=== PATIENT | female | born 1945 | race Caucasian/White ===

== ENCOUNTER 2019-05-14 08:01 | Emergency (ER) | payer MEDICARE, OTHER ==
[2019-05-14 08:14] VITALS: BP 121/75; PULSE 62; RESP 19; TEMP 98.2
[2019-05-14] MEDS ORDERED: MORPHINE SULFATE 4 MG/ML SYRINGE IVP STA (08:45)
[2019-05-14 08:57] LABS: Basophils % (A) 1 %; Eosinophils # (A) 0.1 k/uL (0-0.7); Eosinophils % (A) 3 %; HCT 35.7 % (34.0-46.0); HGB 11.9 gm/dL (11.4-16.0); Lymphocytes % (A) 35 %; MCH 29.1 pg (25.0-35.0); MCHC 33.4 g/dL (31.0-37.0); MCV 87.2 fL (80.0-100.0); Mean Platelet Volume 8.1; Monocytes # (A) 0.4 k/uL (0-1.0); Monocytes % (A) 6 %; Neutrophils % (A) 53 %; Platelet Count 157 k/uL (150-450); RBC 4.09 m/uL (3.80-5.40); RDW 13.9 % (11.5-15.5); WBC 5.5 k/uL (3.8-10.6)
[2019-05-14 09:02] LABS: Appearance,Urine Clear (Clear); Bacteria,Urine Rare /hpf; Bilirubin,Urine Negative (Negative); Blood,Urine Negative (Negative); Color,Urine Yellow; Glucose,Urine (UA) Negative (Negative); Ketones,Urine Negative (Negative); Leukocyte Esterase,Urine Small (Negative); Mucus,Urine Rare /hpf; Nitrite,Urine Negative (Negative); PH, Urine 5.5 (5.0-8.0); Protein,Urine Negative (Negative); RBC,Urine <1 /hpf (0-5); Squamous Epithelial Cell,Urine 1 /hpf (0-4); Urobilinogen,Urine <2.0 mg/dL (<2.0); WBC,Urine 2 /hpf (0-5)
[2019-05-14 09:06] LABS: Albumin 4.1 g/dL (3.5-5.0); Calcium 9.5 mg/dL (8.4-10.2); Potassium 4.1 mmol/L (3.5-5.1); Total Bilirubin 0.4 mg/dL (0.2-1.3); Total Protein 7.4 g/dL (6.3-8.2)
--- NOTE | 2019-05-14 09:30 | ED ---
Abdominal Pain HPI - General Chief Complaint: Abdominal Pain Stated Complaint: Left sided flank pain Time Seen by Provider: 05/14/19 08:20 Source: patient Mode of arrival: wheelchair Limitations: no limitations - History of Present Illness Initial Comments: 73-year-old female presenting for left flank pain. Patient states that she has had left flank pain for the past week. She states she saw her primary care provider who diagnosed her with musculoskeletal pain advised her to apply heat and she states that tramadol seems to help the pain. Patient states the pain is persistent and seems to be increasing for the past 2 days she states it does seem to somewhat fluctuating in intensity and increases with movement. Patient states there is a approximately a hand-sized area near her left CVA area that is tender to touch. Patient states the area almost swollen. Patient denies any nausea or vomiting. She states she had urinalysis performed at her outpatient provider office which revealed no findings consistent with kidney stones. She denies any history. Patient states she feels as though she may have a kidney stone and the pain is persistent. Patient denies any chest pain shortness of breath known history of abdominal aneurysm leg swelling, diarrhea, vomiting, or any other complaints. On arrival patient appears well there is no signs of distress. BP within acceptable limits. - Related Data Previous Rx's Medication Instructions Recorded Cyclobenzaprine [Flexeril] 10 mg PO TID PRN 5 Days #15 tab 05/14/19 Allergies Allergy/AdvReac Type Severity Reaction Status Date / Time Penicillins Allergy Rash/Hives Verified 05/14/19 08:14 Sulfa (Sulfonamide Allergy Unknown Verified 05/14/19 08:14 Antibiotics) Childhood Review of Systems ROS Statement: Those systems with pertinent positive or pertinent negative responses have been documented in the HPI. ROS Other: All systems not noted in ROS Statement are negative. Past Medical History Past Medical History: GERD/Reflux, Hyperlipidemia, Hypertension, Rheumatoid Arthritis (RA), Thyroid Disorder History of Any Multi-Drug Resistant Organisms: None Reported Past Surgical History: Hysterectomy Additional Past Surgical History / Comment(s): gastroplasty, lap ana, Past Psychological History: No Psychological Hx Reported Smoking Status: Never smoker Past Alcohol Use History: Occasional Past Drug Use History: None Reported General Exam - General Exam Comments Initial Comments: General: The patient is awake and alert, in no distress, and does not appear acutely ill. Eye: Pupils are equal, round and reactive to light, extra-ocular movements are intact. No nystagmus. There is normal conjunctiva bilaterally. No signs of icterus. Ears, nose, mouth and throat: There are moist mucous membranes and no oral lesions. Neck: The neck is supple, there is no tenderness or JVD. Cardiovascular: There is a regular rate and rhythm. No murmur, rub or gallop is appreciated. Respiratory: Lungs are clear to auscultation, respirations are non-labored, breath sounds are equal. No wheezes, stridor, rales, or rhonchi. Gastrointestinal: Soft, non-distended, non-tender abdomen without masses or organomegaly noted. There is no rebound or guarding present. Pain to palpation of area in the left CVA region. Bowel sounds are unremarkable. NO pulsatile masses of abdomen. Musculoskeletal: Normal ROM, no tenderness. Strength 5/5. Sensation intact. Radial pulses equal bilaterally 2+. Neurological: A&O x 3. CN II-XII intact grossly, There are no obvious motor or sensory deficits. Coordination appears grossly intact. Speech is normal. Skin: Skin is warm and dry and no rashes or lesions are noted. Psychiatric: Cooperative, appropriate mood & affect, normal judgment. Limitations: no limitations Course Vital Signs 05/14/19 08:10 Temperature 98.2 F Pulse Rate 62 Respiratory 19 Rate Blood Pressure 121/75 O2 Sat by Pulse 98 Oximetry Medical Decision Making - Medical Decision Making Well-appearing 73-year-old male presented for left flank pain. There is a very well localized. Reproducible area of tenderness to the left side of the back. This increases with certain positions. Patient's urinalysis revealed no red blood cells. CT (-) for stone sbut incidental findings of incisional hernias as well as adenoma/enlarged lymph nodes were discussed. I recommend patient follow-up outpatient to primary care provider to review these incidental findings. Otherwise at this time I do not feel cause for the patient's pain is intra-abdominal and more so appears musculoskeletal however I gave patient should return parameters or any increasing or worsening pain patient was instructed to apply heat to the area taking muscle relaxer as needed. patient is agreeable to this care plan and discharge as well as all return parameters. Ca se was discussed in detail by attending provider Dr. Hernandez - Lab Data Result diagrams: 05/14/19 08:36 05/14/19 08:36 Lab Results 05/14/19 05/14/19 05/14/19 Range/Units 08:36 08:36 08:36 WBC 5.5 (3.8-10.6) k/uL RBC 4.09 (3.80-5.40) m/uL Hgb 11.9 (11.4-16.0) gm/dL Hct 35.7 (34.0-46.0) % MCV 87.2 (80.0-100.0) fL MCH 29.1 (25.0-35.0) pg MCHC 33.4 (31.0-37.0) g/dL RDW 13.9 (11.5-15.5) % Plt Count 157 (150-450) k/uL Neutrophils % 53 % Lymphocytes % 35 % Monocytes % 6 % Eosinophils % 3 % Basophils % 1 % Neutrophils # 3.0 (1.3-7.7) k/uL Lymphocytes # 2.0 (1.0-4.8) k/uL Monocytes # 0.4 (0-1.0) k/uL Eosinophils # 0.1 (0-0.7) k/uL Basophils # 0.0 (0-0.2) k/uL Sodium 141 (137-145) mmol/L Potassium 4.1 (3.5-5.1) mmol/L Chloride 106 (98-107) mmol/L Carbon Dioxide 27 (22-30) mmol/L Anion Gap 8 mmol/L BUN 22 H (7-17) mg/dL Creatinine 0.82 (0.52-1.04) mg/dL Est GFR (CKD-EPI)AfAm 83 (>60 ml/min/1.73 sqM) Est GFR (CKD-EPI)NonAf 72 (>60 ml/min/1.73 sqM) Glucose 114 H (74-99) mg/dL Calcium 9.5 (8.4-10.2) mg/dL Total Bilirubin 0.4 (0.2-1.3) mg/dL AST 39 H (14-36) U/L ALT 32 (4-34) U/L Alkaline Phosphatase 82 (38-126) U/L Total Protein 7.4 (6.3-8.2) g/dL Albumin 4.1 (3.5-5.0) g/dL Amylase 50 (30-110) U/L Lipase 69 (23-300) U/L Urine Color Yellow Urine Appearance Clear (Clear) Urine pH 5.5 (5.0-8.0) Ur Specific [place] 1.020 (1.001-1.035) Urine Protein Negative (Negative) Urine Glucose (UA) Negative (Negative) Urine Ketones Negative (Negative) Urine Blood Negative (Negative) Urine Nitrite Negative (Negative) Urine Bilirubin Negative (Negative) Urine Urobilinogen <2.0 (<2.0) mg/dL Ur Leukocyte Esterase Small H (Negative) Urine RBC <1 (0-5) /hpf Urine WBC 2 (0-5) /hpf Ur Squamous Epith Cells 1 (0-4) /hpf Urine Bacteria Rare H (None) /hpf Urine Mucus Rare H (None) /hpf Disposition Clinical Impression: Left-sided back pain, Adenoma, Incisional hernia Disposition: HOME SELF-CARE Condition: Good Instructions (If sedation given, give patient instructions): Muscle Spasm (ED) Additional Instructions: Please use medication as discussed. Please follow-up with family doctor in the next 2 days.. Please return to emergency room if the symptoms increase or worsen or for any other concerns. Prescriptions: Cyclobenzaprine [Flexeril] 10 mg PO TID PRN 5 Days #15 tab PRN Reason: Muscle Spasm Is patient prescribed a controlled substance at d/c from ED?: No Referrals: Arthur Jeronimo MD [Primary Care Provider] - 1-2 days Time of Disposition: 10:16
--- NOTE | 2019-05-14 10:05 | CT ---
EXAMINATION TYPE: CT abdomen pelvis w con DATE OF EXAM: 05/14/2019 COMPARISON: NONE HISTORY: 73-year-old female Left flank pain x 1 week. TECHNIQUE: Contiguous axial scanning of the abdomen and pelvis following administration of 100 ml Iso ruperto 300 IV contrast. Delayed images through the kidneys and coronal/sagittal reconstructions perform ed. CT DLP: 2718.6 mGycm Automated exposure control for dose reduction was used. FINDINGS: LUNG BASES: The heart is upper limits of normal in size. Lung bases clear without pleural effusion. S mall hiatal hernia. LIVER/GB: Liver mildly enlarged at 19.7 cm. 1.2 cm right hepatic dome hypodensity and an additional 1 .9 cm hypodensity along the falciform ligament suggestive of cysts. Portal venous system is patent. N o biliary ductal dilatation. Gallbladder surgically absent. PANCREAS: No significant abnormality is seen. SPLEEN: Mildly enlarged at 14.7 cm on axial series. ADRENALS: 1.3 cm left adrenal nodule statistically represents a benign adrenal adenoma. KIDNEYS: No significant abnormality is seen. ABDOMINAL WALL: Multiple fat-containing ventral midline incisional hernia. These are small in size fo r the most part measuring up to 3.3 cm wide. The largest in the supra umbilical region measures 5.4 c m wide and has some associated fat stranding. REPRODUCTIVE ORGANS: Uterus surgically absent. Pelvic phleboliths. What appears to be the left ovary is seen. Right ovary not clearly visualized. PELVIS: No abnormal fluid collection the pelvis or pelvic lymphadenopathy. Muscular vertebral bladder wall thickening may relate to underdistention. BOWEL: Sometimes postsurgical changes present along the stomach. There may be a staple line excludin g the distal gastric body and antrum however the exact type of surgery is not clear on these images. No dilated small bowel, free fluid, or free air. LYMPH NODES: Scattered nonenlarged and borderline sized mesenteric lymph nodes measuring up to 8 mm p robably reactive/post inflammatory. Bones: Degenerative changes at the hips. Hypertrophic facet arthropathy throughout the lumbar spine. Grade 1 anterolisthesis of L4-L5. Additional degenerative disc disease visualized lower thoracic spin e. IMPRESSION: 1. MULTIPLE FAT-CONTAINING VENTRAL MIDLINE INCISIONAL HERNIAS. MOST OF THESE HERNIAS ARE SMALL MEASUR ING UP TO 3.3 CM WIDE. THE LARGEST IN THE SUPRAUMBILICAL REGION MEASURES 5.4 CM WIDE AND HAS SOME ASS OCIATED INFLAMMATION. CORRELATE TO EXCLUDE INCARCERATED FAT. 2. HEPATOSPLENOMEGALY (LIVER 19.7 CM AND SPLEEN 14.7 CM). 3. SCATTERED BORDERLINE TO MILDLY ENLARGED MESENTERIC LYMPH NODES MEASURING UP TO 8 MM PROBABLY REACT HARDEEP/POST INFLAMMATORY. CONSIDER 6 MONTH FOLLOW-UP TO REASSESS. 4. A 1.3 CM LEFT ADRENAL NODULE, PROBABLE ADRENAL ADENOMA CAN ALSO BE REASSESSED AT THAT TIME. 5. MILD CIRCUMFERENTIAL BLADDER WALL THICKENING MAY RELATE TO UNDERDISTENTION. CORRELATE TO EXCLUDE C YSTITIS.
== END 2019-05-14 10:25 | disposition home or self-care (01) ==
LOC: EC 08:01
DX: K43.2 Incisional hernia without obstruction or gangrene (principal); D35.02 Benign neoplasm of left adrenal gland; Z88.0 Allergy status to penicillin; Z88.2 Allergy status to sulfonamides; Z87.19 Personal history of other diseases of the digestive system; Z98.84 Bariatric surgery status
CPT/HCPCS: 36415; 80053; 82150; 83690; 85025; 81001; 74177; 99284; 96374; J2270; Q9967

== ENCOUNTER → 2019-10-16 | Outpatient (CLI) | payer MEDICARE, OTHER ==
[2019-10-16 15:18] LABS: Albumin 4.1 g/dL (3.5-5.0); Calcium 9.3 mg/dL (8.4-10.2); Potassium 3.8 mmol/L (3.5-5.1); Total Bilirubin 0.3 mg/dL (0.2-1.3); Total Protein 7.5 g/dL (6.3-8.2)
[2019-10-16 15:20] LABS: HCT 35.9 % (34.0-46.0); HGB 11.2 gm/dL (11.4-16.0); MCHC 31.4 g/dL (31.0-37.0); MCV 89.3 fL (80.0-100.0); Mean Platelet Volume 8.2; Platelet Count 153 k/uL (150-450); RBC 4.02 m/uL (3.80-5.40); RDW 14.6 % (11.5-15.5); WBC 7.6 k/uL (3.8-10.6)
[2019-10-16 15:22] LABS: Partial Thromboplastin Time 22.9 sec (22.0-30.0)
[2019-10-16 15:36] LABS: Appearance,Urine Clear (Clear); Bilirubin,Urine Negative (Negative); Blood,Urine Negative (Negative); Color,Urine Yellow; Glucose,Urine (UA) Negative (Negative); Ketones,Urine Negative (Negative); Leukocyte Esterase,Urine Small (Negative); Mucus,Urine Rare /hpf; Nitrite,Urine Negative (Negative); Protein,Urine Negative (Negative); RBC,Urine <1 /hpf (0-5); Specific Gravity,Urine 1.017 (1.001-1.035); Squamous Epithelial Cell,Urine 1 /hpf (0-4); Urobilinogen,Urine <2.0 mg/dL (<2.0); WBC,Urine 1 /hpf (0-5)
== END | disposition home or self-care (01) ==
LOC: LABPAT 14:06
PROVIDERS: ATTEND Orthopaedic Surgery
DX: Z01.818 Encounter for other preprocedural examination (principal); U07.1 COVID-19
CPT/HCPCS: 80053; 85027; 85610; 85730; 81001; 87070; U0003

== ENCOUNTER 2019-10-20 05:59 | Day surgery (SDC) | payer MEDICARE, OTHER ==
[2019-10-15 11:44] VITALS: BMI 41.1
[~2019-10-20 05:59] MED LIST: ACETAMINOPHEN TAB 500 MG TAB PO ONE; GABAPENTIN 300 MG CAP PO ONE; HYDROmorphone 0.5 MG/0.5 ML SYRINGE IVP PRN; LIDOCAINE 1% (10MG/ML) FOR IV START INTRADERMA PRN; ONDANSETRON 4 MG/2 ML VIAL IVP ONE; TRANEXAMIC ACID 1,000 MG in SODIUM CHLORIDE 0.9% 100 ML IVPB ONE; ceFAZolin 3 GM in SODIUM CHLORIDE 0.9% 100 ML IVPB ONE
[2019-10-20] MEDS ORDERED: ROPIVACAINE 246.25 MG, EPINEPHrine 0.5 MG, KETOROLAC 30 MG, cloNIDine HCL/PF 80 MCG, WA... MISCELLANE ONE ×5 (06:00)
[2019-10-20] MEDS ORDERED: MELOXICAM 7.5 MG TAB PO ONE ×2 (06:09→06:13)
[2019-10-20] MEDS ORDERED: DEXAMETHASONE SOD PHOSPHATE 10 MG/ML 1 ML VIAL IV ONE (06:25)
[2019-10-20] MEDS: LACTATED RINGERS 1,000 ML IV SCH ×3 (06:25→21:16)
[2019-10-20] MEDS ORDERED: fentaNYL (PF) 50 MCG/ML 2 ML AMP IVP ONE (06:45)
[2019-10-20] MEDS ORDERED: MIDAZOLAM 2 MG/2 ML VIAL IVP ONE (06:45)
[2019-10-20] MEDS ORDERED: LIDOCAINE 1% INJ 10MG/ML (20 ML MDV) ONE (07:04)
[2019-10-20] MEDS ORDERED: GLYCOPYRROLATE 0.2 MG/ML 2 ML VIAL ONE (07:04)
[2019-10-20] MEDS ORDERED: SUCCINYLCHOLINE CHLORIDE 100 MG/5 ML SYR IV ONE (07:04)
[2019-10-20] MEDS ORDERED: fentaNYL (PF) 50 MCG/ML 2 ML AMP ONE (07:04)
[2019-10-20] MEDS ORDERED: ROCURONIUM BROMIDE 10 MG/ML 5 ML VIAL IV ONE (07:04)
[2019-10-20] MEDS ORDERED: MIDAZOLAM 2 MG/2 ML VIAL ONE (07:04)
[2019-10-20] MEDS ORDERED: NEOSTIGMINE 1 MG/ML 10 ML VIAL ONE (07:04)
[2019-10-20] MEDS ORDERED: PROPOFOL 10 MG/ML 20 ML VIAL IV ONE (07:04)
[2019-10-20] MEDS ORDERED: ceFAZolin 3,000 MG in SODIUM CHLORIDE 0.9% IRRIGATIO 3,000 ML IRRIGATION ONE (07:28)
[2019-10-20] MEDS ORDERED: LACTATED RINGERS 1,000 ML IV ONE (07:58)
--- NOTE | 2019-10-20 08:33 | P.OP ---
Date of Procedure: 10/20/19 Preoperative Diagnosis: Severe osteoarthritis left knee Postoperative Diagnosis: Severe osteoarthritis left knee Procedure(s) Performed: Left total knee arthroplasty Implants: Carbajal [employer] Nephew Journey II CR Oxinium cruciate retaining femoral component size 5, left Carb[employer] Journey left nonporous tibial baseplate size 3 Carb[employer]hew Journey II, XLPE Deep Dished articular insert, size 9 mm, Size 3- 4 left [employer] Journey BCS resurfacing oval patellar component, 28 mm All components were cemented using Palacos R bone cement.. The articulation is Oxinium on polyethylene. Anesthesia: GETA Surgeon: Earl Wilburn Laboratory Worker #1: Matheus Goldberg Estimated Blood Loss (ml): 25 Pathology: other (Bone and cartilage) Condition: stable Disposition: PACU Indications for Procedure: After failure of conservative treatment we discussed the surgical and nonsurgical treatment options at length. Patient wishes to proceed with a total knee arthroplasty. Complications specific to this procedure were discussed at length, including but not limited to infection, bleeding, stiffness, and nerve injury. Covid-19 was also discussed at length with the patient, and they are aware of the current policies and procedures. The patient was given the option of delaying surgery, but they elect to proceed knowing these risks. Patient is aware of all these complications and informed consent was obtained Operative Findings: The operative findings are consistent with severe osteoarthritis of the left knee Description of Procedure: Patient was seen in the preoperative area consent was reviewed and operative site was marked with a skin marker. An adductor canal pain catheter was placed by anesthesia in the preoperative area. Patient was then brought to the operating room and given preoperative antibiotics intravenously. A spinal anesthetic was administered by the anesthesia department. A tourniquet was placed on the upper thigh and the lower extremity was prepped and draped in usual sterile fashion. A gram of transexamic acid was given. A universal timeout was then performed which confirmed the patient's name, surgical site, ALLERGIES, and consent. The lower extremity was then exsanguinated and tourniquet was inflated to 250 mmHg. A standard and anterior midline approach to the knee was performed. The skin and subcutaneous tissue was dissected down to the patellar tendon. A medial parapatellar arthrotomy was then performed. The knee was then extended, the patellar was everted, and the knee was again flexed. The patellar fat pad was removed in order to enhance exposure. Anterior horns of both menisci were excised, and a release was performed to the posterior medial aspect of the knee. On gross visual inspection, there was complete loss of articular cartilage in the medial and patellofemoral joint spaces. There was also significant cartilage damage in the lateral compartment. There were multiple periarticular osteophytes which were then removed with a Ronguer. The femoral canal was then opened with the 9.5 mm intramedullary drill. The 8 mm intramedullary vaughn was then inserted into the femoral canal. The distal femoral cutting guide was then placed and set for 5 of valgus. The distal femoral cutting block was then pinned in place. The intramedullary vaughn was then removed, and the distal femur was then cut. The cutting block was then removed and the cut was checked for symmetry. Next, the sizing guide was then placed and set for 3 external rotation based off of the epicondylar axis and Whitesides line. Pins were then placed and the drill holes, and the femur was sized with the sizing stylus. The pins were then removed, and the sizing guide was then removed. The spikes of the femoral block was then placed into the predrilled holes, and malleted into place. Two 45 mm pins were then placed into the fixation holes on the cutting block. An stella wing was then used to ensure there would be no notching with the anterior cut. The anterior condyles were cut without notching. The anterior cord cut was then performed, followed by the posterior cut, posterior chamfer cut, and the anterior chamfer cut. The collateral ligaments were protected during the entire process. The cutting block was then removed, and the femoral canal was plugged with autologous bone. Attention was then directed to the tibia. The remaining ACL was removed with a Ronguer, and the tibia was then gently subluxed forward with a large bent knee retractor. Any remaining menisci was excised. The posterior lateral corner was cauterized in order to cauterize the lateral geniculate artery. The extra medullary tibial cutting guide was then placed, set for the appropriate rotation, slope, and depth of resection. The proximal tibia cutting guide was then pinned in place. Proximal tibia was then cut and sized. Next trials were then placed with the appropriate-sized insert. The knee was able to fully extend and flex to 130 and was stable throughout all range of motion. The knee was then extended, patella everted. Patella was then measured, and then using an osteotomy guide, the patella was cut at the appropriate level. The patella was then measured and drilled and the patella trial was then placed. The knee was then taken through range of motion with the patella trial and the patella tracked normally. The knee was then extended patella trial was then removed and the patella was everted. Knee was then flexed and lug holes were drilled through the femoral trial and the femoral trial was then removed. The tibial was then exposed, and the tibial broach guide was then pinned in place after it was set for the appropriate rotation to allow for the most coverage without overhang. The tibia was then reamed and broached. The cut surfaces of bone were then irrigated with pulsatile lavage. The posterior structures were injected with the ropivacaine solution. The knee was also irrigated with Irrisept solution. The components were then opened, the cement was mixed, and the components were then cemented in place. The cement was allowed to harden with the knee in full extension. While the cement was hardening, the remaining soft tissues were then injected with a ropivacaine solution, which consisted of 246.25 mg of ropivacaine, 0.5 mg of epinephrine, 30 mg of Toradol, 80 g of clonidine, and 48.45 mL of sterile water, for a total of 100 mL of fluid injected. After the cemented hardened. The tourniquet was released, and hemostasis was obtained. A second gram of transexamic acid was given. The knee was again irrigated. The knee was again taken through range of motion and found to be stable throughout all range of motion of 0-130, and the patella tracked normally. The fascia was then closed with #2 strata fix suture. The subcutaneous tissue was closed with 3-0 Vicryl and 3-0 strata fix. Dermabond glue was used for the skin and placed with the knee in flexion. The patient was placed in a sterile silver dressing. Patient was then transferred to recovery room in stable condition. The clinical research assistant MONA Lazo was required due the complexity surgery and the need for a skilled neurosurgical nurse practitioner. She assisted in positioning, draping, retraction, and closure of the wound.
[2019-10-20] MEDS ORDERED: ONDANSETRON 4 MG/2 ML VIAL IVP PRN (09:07)
[2019-10-20] MEDS ORDERED: hydrOXYzine PAMOATE 25 MG CAP PO PRN (09:07)
[2019-10-20] MEDS ORDERED: HYDROmorphone 0.5 MG/0.5 ML SYRINGE IVP PRN ×3 (09:07)
[2019-10-20] MEDS ORDERED: HYDROcodone/APAP 5-325MG 1 EACH TAB PO PRN (09:07)
[2019-10-20] MEDS ORDERED: NALOXONE 0.4 MG/ML 1 ML VIAL IV PRN (09:07)
[2019-10-20] MEDS ORDERED: diphenhydrAMINE 50 MG/ML 1 ML VIAL IVP ONE (09:11)
[2019-10-20] MEDS ORDERED: ROPIVACAINE 0.2%-NS ON-Q PUMP 1,090 MG, EMPTY PAIN BALL 1 EACH MISCELLANE PRN (09:20)
[2019-10-20] MEDS ORDERED: PROMETHAZINE INJ 25 MG/ML 1 ML VIAL IVPB ONE (09:53)
--- NOTE | 2019-10-20 09:59 | XR ---
EXAMINATION TYPE: XR knee limited LT DATE OF EXAM: 10/20/2019 COMPARISON: NONE TECHNIQUE: Two views submitted HISTORY: Post op FINDINGS: There is a prosthetic knee in near anatomic alignment. There is soft tissue edema and emphysema. IMPRESSION: 1. Postoperative change. Appears in near-anatomic alignment
--- NOTE | 2019-10-20 11:48 | P.ANPRN ---
Procedure Note - Anesthesia - Nerve Block Performed Left Adductor Canal Infusion Time Out Performed: Yes (645) Date of Procedure: 10/20/19 Procedure Start Time: 06:46 Procedure Stop Time: 06:51 Location of Patient: PreOp Indication: Acute Post-Operative Pain, Requested by Surgeon Specifically requested for management of pain by DrAnh: Earl Wilburn Sedation Type: Sedate with meaningful contact maintained Preparation: Sterile Prep Position: Supine Catheter: Indwelling Needle Types: Pajunk Needle Gauge: 20 Ultrasound used to visualize needle placement: Yes Ultrasound used to observe medication spread: Yes Injectate: 0.5% Ropivacaine (see comment for volume) (20cc) Blood Aspirated: No Pain Paresthesia on Injection Noted: No Resistance on Injection: Normal Image Stored and Saved: Yes Events: Uneventful and Well Tolerated
[2019-10-20] MEDS: ASPIRIN 325 MG TAB PO SCH (20:03)
[2019-10-20] MEDS: HYDROcodone/APAP 5-325MG 1 EACH TAB PO PRN (20:09)
[2019-10-20] MEDS ORDERED: SENNOSIDES-DOCUSATE SODIUM 1 EACH TAB PO SCH (21:00)
[2019-10-21] MEDS: HYDROcodone/APAP 5-325MG 1 EACH TAB PO PRN ×2 (04:38→11:00)
[2019-10-21] MEDS: LACTATED RINGERS 1,000 ML IV SCH ×2 (04:42→05:42)
[2019-10-21] MEDS ORDERED: LEVOTHYROXINE 25 MCG TAB PO SCH (06:30)
[2019-10-21] MEDS: ASPIRIN 325 MG TAB PO SCH (07:26)
[2019-10-21] MEDS ORDERED: PANTOPRAZOLE 40 MG TABLET PO SCH (07:30)
[2019-10-21 07:40] LABS: Basophils % (A) 0 %; Eosinophils % (A) 0 %; HCT 32.4 % (34.0-46.0); HGB 10.2 gm/dL (11.4-16.0); Lymphocytes # (A) 1.6 k/uL (1.0-4.8); Lymphocytes % (A) 19 %; MCH 27.9 pg (25.0-35.0); MCHC 31.4 g/dL (31.0-37.0); Mean Platelet Volume 8.1; Monocytes # (A) 0.5 k/uL (0-1.0); Monocytes % (A) 6 %; Neutrophils # (A) 6.4 k/uL (1.3-7.7); Neutrophils % (A) 74 %; Platelet Count 147 k/uL (150-450); RBC 3.64 m/uL (3.80-5.40); RDW 14.7 % (11.5-15.5); WBC 8.7 k/uL (3.8-10.6)
[2019-10-21 07:59] VITALS: BP 139/83; TEMP 98.6
[2019-10-21 08:01] VITALS: PULSE 55; RESP 20
[2019-10-21] MEDS ORDERED: METOPROLOL TARTRATE 25 MG TAB PO SCH (09:00)
--- NOTE | 2019-10-21 13:08 | P.DS ---
Providers Expected date of discharge: 10/21/19 Attending physician: Earl Wilburn Consults: 10/20/19 09:14 Consult Physician Routine Consulting Provider: Arthur Jeronimo Consult Reason/Comments: medical management Do you want consulting provider notified?: Yes Primary care physician: Arthur Jeronimo MD Hospital Course: This is a 74-year-old female who was last seen with complaint of continued left knee pain by Dr. Wilburn. The patient has a known history of degenerative arthritis of the left knee and presents to discuss surgical options. After discussion and consideration the patient elects to proceed with total left knee arthroplasty. The patient is seen preoperatively by Dr. Jeronimo and cleared for surgery. The patient is admitted to [facility] for total left knee ar throplasty. The procedures performed without complication or sequelae. Vital signs and labs are stable on postoperative day #1. The patient is examined bedside this morning with Dr. Wilburn. Patient states she is experiencing mild pain in the left knee. She has been ambulating to the bathroom with the assistance of a walker. She has been cleared by physical therapy to discharge home with home health care. She overall feels well this morning and has no new complaints. On examination, the patient is sitting up in the bedside chair in no apparent distress. She is alert and oriented 3. On inspection of the left knee, there is a clean, dry, intact surgical dressing in place. Patient has ice placed over the anterior knee. Patient able to flex and extend knee without issue. The left lower extremity is warm and well-perfused. The patient is discharged to home on post-operative day #1 pending medical clearance. Please see orders and refer to the med rec for accurate list of medications. Patient Condition at Discharge: Fair Plan - Discharge Summary Discharge Rx Participant: Yes New Discharge Prescriptions: New HYDROcodone/APAP 5-325MG [[place] 5-325] 1 - 2 tab PO Q6HR PRN 7 Days #42 tab PRN Reason: Pain Aspirin 325 mg PO BID 30 Days #60 tab No Action Diclofenac Sodium Gel [Voltaren Gel] 4 gm TOPICAL Q4-6H PRN PRN Reason: knee pain traMADol HCL [Ultram] 50 mg PO Q4-6H PRN PRN Reason: Pain metroNIDAZOLE 0.75% CREAM [Metrocream] 1 applic TOPICAL DAILY Clobetasol Propionate [Temovate 0.05% Cream] 1 applic TOPICAL DAILY PRN PRN Reason: psoriasis Cyanocobalamin [Vitamin B-12 Injection] 1,000 mcg SQ QMONTH Cholecalciferol [Vitamin D3 (25 Mcg = 1000 Iu)] 2,000 unit PO DAILY Rosuvastatin Calcium [Crestor] 20 mg PO DAILY Aspirin [Adult Low Dose Aspirin EC] 81 mg PO DAILY Diclofenac Sodium [Diclofenac Sodium ER] 100 mg PO DAILY Doxycycline Hyclate 20 mg PO DAILY Lovastatin [Mevacor] 20 mg PO DAILY Omeprazole [[facility]LOSEC] [facility] Losartan/Hydrochlorothiazide [Losartan-Hctz 100-25 mg Tab] 1 tab PO DAILY Levothyroxine Sodium [Unithroid] 25 mcg PO DAILY Metoprolol Tartrate [Lopressor] 25 mg PO DAILY Discharge Medication List Aspirin [Adult Low Dose Aspirin EC] 81 mg PO DAILY 10/15/19 [History] Cholecalciferol [Vitamin D3 (25 Mcg = 1000 Iu)] 2,000 unit PO DAILY 10/15/19 [History] Clobetasol Propionate [Temovate 0.05% Cream] 1 applic TOPICAL DAILY PRN 10/15/19 [History] Cyanocobalamin [Vitamin B-12 Injection] 1,000 mcg SQ QMONTH 10/15/19 [History] Diclofenac Sodium Gel [Voltaren Gel] 4 gm TOPICAL Q4-6H PRN 10/15/19 [History] Diclofenac Sodium [Diclofenac Sodium ER] 100 mg PO DAILY 10/15/19 [History] Doxycycline Hyclate 20 mg PO DAILY 10/15/19 [History] Levothyroxine Sodium [Unithroid] 25 mcg PO DAILY 10/15/19 [History] Losartan/Hydrochlorothiazide [Losartan-Hctz 100-25 mg Tab] 1 tab PO DAILY 10/15/19 [History] Lovastatin [Mevacor] 20 mg PO DAILY 10/15/19 [History] Metoprolol Tartrate [Lopressor] 25 mg PO DAILY 10/15/19 [History] Omeprazole [PriLOSEC] 20 mg PO -BRKT 10/15/19 [History] Rosuvastatin Calcium [Crestor] 20 mg PO DAILY 10/15/19 [History] metroNIDAZOLE 0.75% CREAM [Metrocream] 1 applic TOPICAL DAILY 10/15/19 [History] traMADol HCL [Ultram] 50 mg PO Q4-6H PRN 10/15/19 [History] Aspirin 325 mg PO BID 30 Days #60 tab 10/21/19 [Rx] HYDROcodone/APAP 5-325MG [[place] 5-325] 1 - 2 tab PO Q6HR PRN 7 Days #42 tab 08/06 [Rx] Follow up Appointment(s)/Referral(s): Arthur Jeronimo MD [Primary Care Provider] - 10/26/19 1:45 pm [facility], [NON-STAFF] - Earl Wilburn DO [Doctor of Osteopathic Medicine] - 11/09/19 10:30 am Patient Instructions/Handouts: *Surgery [facility] - On-Q Pain Pump Discharge Instructions, Pain Management After Surgery (DC), Joint Replacement Surgery (DC) Activity/Diet/Wound Care/Special Instructions: Weight-bear as tolerated on your operative leg. Use walker for ambulation. Keep dressing in place for 7-10 days. Take pain medications as prescribed. Take aspirin for DVT prophylaxis as prescribed. Follow-up in the office with Dr. Wilburn in 2 weeks. Call office with any questions or concerns Discharge Disposition: HOME WITH HOME HEALTH SERVICES
--- NOTE | 2019-10-22 09:36 | P.CONS ---
History of Present Illness - Reason for Consult Consult date: 10/21/19 medical eval - History of Present Illness Bouchra Rebolledo is a 74 yo F with PMH of psoriatic arthritis, OA, hypertension, hyperlipidemia who is admitted for a scheduled left TKA. She is postop day #1 today, overall feeling well although reports pain at rest and with ambulation. She does feel her pain is controlled with oral medications. She denies chest pain, shortness of breath, leg swelling. Vitals and labs are reviewed today and unremarkable. Review of Systems All systems: negative Constitutional: Denies chills, Denies fever Eyes: denies blurred vision, denies pain Ears, nose, mouth and throat: Denies headache, Denies sore throat Cardiovascular: Denies chest pain, Denies shortness of breath Respiratory: Denies cough Gastrointestinal: Denies abdominal pain, Denies diarrhea, Denies nausea, Denies vomiting Genitourinary: Denies dysuria, Denies hematuria Musculoskeletal: Reports as per HPI, Reports limitation of motion, Denies myalgias Integumentary: Denies pruritus, Denies rash Neurological: Denies numbness, Denies weakness Psychiatric: Denies anxiety, Denies depression Endocrine: Denies fatigue, Denies weight change Past Medical History Past Medical History: GERD/Reflux, Hyperlipidemia, Hypertension, Skin Disorder, Sleep Apnea/CPAP/BIPAP, Thyroid Disorder Additional Past Medical History / Comment(s): Uses CPAP. Psoriatic arthritis. Has rosacea, psoriasis. History of Any Multi-Drug Resistant Organisms: None Reported Past Surgical History: Bariatric Surgery, Cholecystectomy, Hysterectomy, Orthopedic Surgery Additional Past Surgical History / Comment(s): Vertical banding Gastroplasty 1982. Lt foot tendon repair. Josh cataracts. Past Anesthesia/Blood Transfusion Reactions: Previous Problems w/ Anesthesia Additional Past Anesthesia/Blood Transfusion Reaction / Comm: Hx pneumonia after general anesthetics. Past Psychological History: No Psychological Hx Reported Additional Psychological History / Comment(s): mild claustrophobia Smoking Status: Former smoker Past Alcohol Use History: Rare Additional Past Alcohol Use History / Comment(s): Smoked 4-5 years in her 20's. Past Drug Use History: None Reported - Past Family History Mother Family Medical History: Cancer Additional Family Medical History / Comment(s): thyroid cancer Father Family Medical History: Myocardial Infarction ([place]) Additional Family Medical History / Comment(s): at 52 from massive [place] Brother(s) Family Medical History: Cancer Additional Family Medical History / Comment(s): from metastatic Melanoma Medications and Allergies Home Medications Medication Instructions Recorded Confirmed Type Aspirin [Adult Low Dose Aspirin EC] 81 mg PO DAILY 10/15/19 10/15/19 History Cholecalciferol [Vitamin D3 (25 2,000 unit PO DAILY 10/15/19 10/15/19 History Mcg = 1000 Iu)] Clobetasol Propionate [Temovate 1 applic TOPICAL DAILY PRN 10/15/19 10/15/19 History 0.05% Cream] Cyanocobalamin [Vitamin B-12 1,000 mcg SQ QMONTH 10/15/19 10/15/19 History Injection] Diclofenac Sodium Gel [Voltaren 4 gm TOPICAL Q4-6H PRN 10/15/19 10/15/19 History Gel] Diclofenac Sodium [Diclofenac 100 mg PO DAILY 10/15/19 10/15/19 History Sodium ER] Doxycycline Hyclate 20 mg PO DAILY 10/15/19 10/15/19 History Levothyroxine Sodium [Unithroid] 25 mcg PO DAILY 10/15/19 10/15/19 History Losartan/Hydrochlorothiazide 1 tab PO DAILY 10/15/19 10/15/19 History [Losartan-Hctz 100-25 mg Tab] Lovastatin [Mevacor] 20 mg PO DAILY 10/15/19 10/15/19 History Metoprolol Tartrate [Lopressor] 25 mg PO DAILY 10/15/19 10/20/19 History Omeprazole [PriLOSEC] 20 mg PO AC-BRKFST 10/15/19 10/15/19 History Rosuvastatin Calcium [Crestor] 20 mg PO DAILY 10/15/19 10/15/19 History metroNIDAZOLE 0.75% CREAM 1 applic TOPICAL DAILY 10/15/19 10/15/19 History [Metrocream] traMADol HCL [Ultram] 50 mg PO Q4-6H PRN 10/15/19 10/20/19 History Aspirin 325 mg PO BID 30 Days #60 tab 10/21/19 Rx HYDROcodone/APAP 5-325MG [[place] 1 - 2 tab PO Q6HR PRN 7 Days #42 10/21/19 Rx 5-325] tab Allergies Allergy/AdvReac Type Severity Reaction Status Date / Time bee pollen Allergy Swelling Verified 10/20/19 06:16 Penicillins Allergy Rash/Hives Verified 10/20/19 06:16 red dye Allergy Swelling Verified 10/20/19 06:16 Sulfa (Sulfonamide Allergy Unknown Verified 10/20/19 06:16 Antibiotics) Childhood Physical Exam Gen.: Well-developed, well-nourished white female in no acute distress HEENT: Normocephalic, atraumatic, mucous membranes moist Neck: Supple, no thyromegaly, no JVD CV: Regular rate and rhythm, no murmur Lungs: Normal effort, clear throughout Abdomen: Soft, nondistended, nontender, bowel sounds present Extremities: Left knee swelling and painful to flexion. No peripheral edema, pulses 2+ Neuro: Alert and oriented 3, no focal deficits Skin: Warm and dry Results CBC & Chem 7: 10/21/19 06:44 Assessment and Plan (1) Psoriatic arthritis Status: Acute Code(s): L40.50 - ARTHROPATHIC PSORIASIS, UNSPECIFIED SNOMED Code(s): 936291397 (2) Hypertension Status: Acute Code(s): I10 - ESSENTIAL (PRIMARY) HYPERTENSION SNOMED Code(s): 80405645 (3) Hyperlipidemia Status: Acute Code(s): E78.5 - HYPERLIPIDEMIA, UNSPECIFIED SNOMED Code(s): 43816632 (4) Status post total left knee replacement Status: Acute Code(s): Z96.652 - PRESENCE OF LEFT ARTIFICIAL KNEE JOINT SNOMED Code(s): 1136214435559 Plan: 1 left total knee arthroplasty. Management per orthopedic. Pain control. She is medically stable for discharge. Home therapy 2. Psoriatic arthritis 3. Hypertension. Resume home medications 4. Hyperlipidemia 5. GERD
== END 2019-10-21 13:21 | disposition home health service (06) ==
LOC: OR 05:59 → 4SSUR 12:50 → OR 10-21 13:21
PROVIDERS: ATTEND Orthopaedic Surgery
DX: M17.12 Unilateral primary osteoarthritis, left knee (principal); I10 Essential (primary) hypertension; E03.9 Hypothyroidism, unspecified; E78.00 Pure hypercholesterolemia, unspecified; L40.50 Arthropathic psoriasis, unspecified; E78.5 Hyperlipidemia, unspecified; K21.9 Gastro-esophageal reflux disease without esophagitis; G47.33 Obstructive sleep apnea (adult) (pediatric); L71.9 Rosacea, unspecified; E66.9 Obesity, unspecified; Z97.3 Presence of spectacles and contact lenses; Z90.49 Acquired absence of other specified parts of digestive tract; Z90.710 Acquired absence of both cervix and uterus; Z99.89 Dependence on other enabling machines and devices; Z87.891 Personal history of nicotine dependence; Z79.890 Hormone replacement therapy; Z79.899 Other long term (current) drug therapy; Z79.82 Long term (current) use of aspirin; Z88.0 Allergy status to penicillin; Z88.2 Allergy status to sulfonamides; Z98.84 Bariatric surgery status; Z98.41 Cataract extraction status, right eye; Z98.42 Cataract extraction status, left eye; Z87.01 Personal history of pneumonia (recurrent); Z91.030 Bee allergy status; Z91.041 Radiographic dye allergy status; F40.240 Claustrophobia; Z80.8 Family history of malignant neoplasm of other organs or systems; Z82.49 Family history of ischemic heart disease and other diseases of the circulatory system; Z83.3 Family history of diabetes mellitus; Z68.41 Body mass index [BMI] 40.0-44.9, adult
CPT/HCPCS: 97116; 97161; 64448; 76942; 85025; 88300; 73560; 27447; C1713; C1776; J2250; J0171; J1200; J1100; J2550; J0690 ×2; J2405; J3010; J1885; J2795 ×2; J0735; J1170

== ENCOUNTER 2020-07-29 11:56 | Emergency (ER) | payer MEDICARE, OTHER ==
[2020-07-29 12:04] VITALS: TEMP 97.9
[2020-07-29] MEDS ORDERED: ASPIRIN 81 MG PO STA (12:51)
--- NOTE | 2020-07-29 12:52 | ED ---
General Adult HPI - General Chief complaint: Chest Pain Stated complaint: Chest pain Time Seen by Provider: 07/29/20 12:14 Source: patient Mode of arrival: ambulatory Limitations: no limitations - History of Present Illness Initial comments: Dictation was produced using [employer] dictation software. please excuse any grammatical, word or spelling errors. This patient was cared for during a federal and state declared state of emergency secondary to Covid 19 Chief Complaint: 74-year-old male presents with chest pain History of Present Illness: 74-year-old female she presents today with chest pain. Patient has no history of coronary artery disease or cardiac history. She has past medical history of dyslipidemia hypertension and remote tobacco use disorder. Patient states that today she began having intermittent episodes of chest pain. She locates the pain to the left chest which is sharp however with some squeezing characteristic. States it radiates to the left mid neck. No radiations of symptoms to the upper extremity is. No associated diaphoresis. No numbness and paresthesias to the arms or legs. Patient states the pain is mild. She thought that initially was associated with her recent dietary changes. Patient is attempting to lose weight via ketogenic diet. Patient reports that she does have family history of coronary artery disease. She denies any shortness of breath. No lower extremity symptoms. She has had a DVT in the past from prolonged sitting during travel. The ROS documented in this emergency department record has been reviewed and confirmed by me. Those systems with pertinent positive or negative responses have been documented in the HPI. All other systems are other negative and/or noncontributory. PHYSICAL EXAM: General Impression: Alert and oriented x3, not in acute distress HEENT: Normocephalic atraumatic, extra-ocular movements intact, pupils equal and reactive to light bilaterally, mucous membranes moist. Cardiovascular: Heart regular rate and rhythm Chest: Able to complete full sentences, no retractions, no tachypnea Abdomen: abdomen soft, non-tender, non-distended, no organomegaly Musculoskeletal: Pulses present and equal in all extremities, no peripheral edema Motor: no focal deficits noted Neurological: CN II-XII grossly intact, no focal motor or sensory deficits noted Skin: Intact with no visualized rashes Psych: Normal affect and mood ED course: 74-year-old female presents with atypical chest pain with typical features. She does have risk factors. Vital signs upon arrival are within acceptable limits. Initial EKG performed at 12:14 AM does not show any signs of ischemia or infarction. Laboratory evaluation obtained. CBC, coag panel, metabolic panel is unremarkable. Very slight elevation of liver enzymes. Troponin is negative. Chest x-ray shows no acute processes. Patient given full dose aspirin. disposition options were discussed with patient at approximately 3:10 PM. She requests that she have a second troponin be discharge if that result is normal. States she has to go home to help her fianc with his bowel prep. Serial troponins are unremarkable. Patient told that she must follow up with her primary care doctor for outpatient management of chest pain. Return parameters is discussed. Patient will be discharged. EKG interpretation: Ventricular rate 59, sinus bradycardia,. Interval 118, QRS 84, QTC 423. No GA prolongation, no QTC prolongation, no ST or T-wave changes noted. Overall, this EKG is unremarkable - Related Data Home Medications Medication Instructions Recorded Confirmed Cholecalciferol [Vitamin D3 (25 50 mcg PO DAILY 10/15/19 07/29/20 Mcg = 1000 Iu)] Cyanocobalamin [Vitamin B-12 1,000 mcg SQ Q30D 10/15/19 07/29/20 Injection] Levothyroxine Sodium [Unithroid] 25 mcg PO AC-BRKFST 10/15/19 07/29/20 Losartan/Hydrochlorothiazide 1 tab PO DAILY 10/15/19 07/29/20 [Losartan-Hctz 100-25 mg Tab] Metoprolol Tartrate [Lopressor] 25 mg PO DAILY 10/15/19 07/29/20 Omeprazole [PriLOSEC] 20 mg PO DAILY 10/15/19 07/29/20 Aspirin EC [Ecotrin Low Dose] 81 mg PO DAILY 07/29/20 07/29/20 Diclofenac Sodium [Voltaren] 50 mg PO DAILY 07/29/20 07/29/20 Doxycycline Hyclate 20mg 20 mg PO DAILY 07/29/20 07/29/20 Multivitamins, Thera [Multivitamin 1 tab PO DAILY 07/29/20 07/29/20 (formulary)] Rosuvastatin Calcium [Crestor] 10 mg PO DAILY 07/29/20 07/29/20 Allergies Allergy/AdvReac Type Severity Reaction Status Date / Time bee pollen Allergy Swelling Verified 07/29/20 14:23 Penicillins Allergy Rash/Hives Verified 07/29/20 14:23 red dye Allergy Swelling Verified 07/29/20 14:23 Sulfa (Sulfonamide Allergy Unknown Verified 07/29/20 14:23 Antibiotics) Childhood Review of Systems ROS Statement: Those systems with pertinent positive or pertinent negative responses have been documented in the HPI. ROS Other: All systems not noted in ROS Statement are negative. Past Medical History Past Medical History: GERD/Reflux, Hyperlipidemia, Hypertension, Rheumatoid Arthritis (RA), Thyroid Disorder History of Any Multi-Drug Resistant Organisms: None Reported Past Surgical History: Hysterectomy, Joint Replacement, Orthopedic Surgery Additional Past Surgical History / Comment(s): gastroplasty, lap ana, Past Psychological History: No Psychological Hx Reported Smoking Status: Never smoker Past Alcohol Use History: Occasional Past Drug Use History: None Reported - Past Family History Mother Family Medical History: Cancer Additional Family Medical History / Comment(s): thyroid cancer Father Family Medical History: Myocardial Infarction ([place]) Additional Family Medical History / Comment(s): at 52 from massive [place] Brother(s) Family Medical History: Cancer Additional Family Medical History / Comment(s): from metastatic Melanoma General Exam Limitations: no limitations Course Vital Signs 07/29/20 12:01 Temperature 97.9 F Pulse Rate 56 L Respiratory 20 Rate Blood Pressure 124/61 O2 Sat by Pulse 96 Oximetry Medical Decision Making - Lab Data Result diagrams: 07/29/20 14:14 07/29/20 14:14 Lab Results 07/29/20 07/29/20 07/29/20 Range/Units 14:14 14:14 14:14 WBC 5.8 (3.8-10.6) k/uL RBC 3.99 (3.80-5.40) m/uL Hgb 11.6 (11.4-16.0) gm/dL Hct 33.5 L (34.0-46.0) % MCV 83.9 (80.0-100.0) fL MCH 29.0 (25.0-35.0) pg MCHC 34.6 (31.0-37.0) g/dL RDW 16.1 H (11.5-15.5) % Plt Count 148 L (150-450) k/uL MPV 7.6 Neutrophils % 59 % Lymphocytes % 31 % Monocytes % 5 % Eosinophils % 3 % Basophils % 1 % Neutrophils # 3.4 (1.3-7.7) k/uL Lymphocytes # 1.8 (1.0-4.8) k/uL Monocytes # 0.3 (0-1.0) k/uL Eosinophils # 0.2 (0-0.7) k/uL Basophils # 0.0 (0-0.2) k/uL Anisocytosis Slight PT 10.5 (9.0-12.0) sec INR 1.0 (<1.2) APTT 22.0 (22.0-30.0) sec Sodium 137 (137-145) mmol/L Potassium 4.0 (3.5-5.1) mmol/L Chloride 102 (98-107) mmol/L Carbon Dioxide 25 (22-30) mmol/L Anion Gap 10 mmol/L BUN 26 H (7-17) mg/dL Creatinine 0.71 (0.52-1.04) mg/dL Est GFR (CKD-EPI)AfAm >90 (>60 ml/min/1.73 sqM) Est GFR (CKD-EPI)NonAf 85 (>60 ml/min/1.73 sqM) Glucose 94 (74-99) mg/dL Calcium 9.3 (8.4-10.2) mg/dL Magnesium 1.6 (1.6-2.3) mg/dL Total Bilirubin 0.4 (0.2-1.3) mg/dL AST 72 H (14-36) U/L ALT 49 H (4-34) U/L Alkaline Phosphatase 75 (38-126) U/L Troponin I (0.000-0.034) ng/mL Total Protein 7.4 (6.3-8.2) g/dL Albumin 4.1 (3.5-5.0) g/dL 07/29/20 07/29/20 Range/Units 14:14 17:19 WBC (3.8-10.6) k/uL RBC (3.80-5.40) m/uL Hgb (11.4-16.0) gm/dL Hct (34.0-46.0) % MCV (80.0-100.0) fL MCH (25.0-35.0) pg MCHC (31.0-37.0) g/dL RDW (11.5-15.5) % Plt Count (150-450) k/uL MPV Neutrophils % % Lymphocytes % % Monocytes % % Eosinophils % % Basophils % % Neutrophils # (1.3-7.7) k/uL Lymphocytes # (1.0-4.8) k/uL Monocytes # (0-1.0) k/uL Eosinophils # (0-0.7) k/uL Basophils # (0-0.2) k/uL Anisocytosis PT (9.0-12.0) sec INR (<1.2) APTT (22.0-30.0) sec Sodium (137-145) mmol/L Potassium (3.5-5.1) mmol/L Chloride (98-107) mmol/L Carbon Dioxide (22-30) mmol/L Anion Gap mmol/L BUN (7-17) mg/dL Creatinine (0.52-1.04) mg/dL Est GFR (CKD-EPI)AfAm (>60 ml/min/1.73 sqM) Est GFR (CKD-EPI)NonAf (>60 ml/min/1.73 sqM) Glucose (74-99) mg/dL Calcium (8.4-10.2) mg/dL Magnesium (1.6-2.3) mg/dL Total Bilirubin (0.2-1.3) mg/dL AST (14-36) U/L ALT (4-34) U/L Alkaline Phosphatase (38-126) U/L Troponin I <0.012 <0.012 (0.000-0.034) ng/mL Total Protein (6.3-8.2) g/dL Albumin (3.5-5.0) g/dL Disposition Clinical Impression: Chest pain Disposition: HOME SELF-CARE Condition: Fair Instructions (If sedation given, give patient instructions): Chest Pain (ED) Is patient prescribed a controlled substance at d/c from ED?: No Referrals: Arthur Jeronimo MD [Primary Care Provider] - 1-2 days Time of Disposition: 17:46
[2020-07-29 14:30] LABS: Anisocytosis Slight; Basophils % (A) 1 %; Eosinophils # (A) 0.2 k/uL (0-0.7); Eosinophils % (A) 3 %; HCT 33.5 % (34.0-46.0); HGB 11.6 gm/dL (11.4-16.0); Lymphocytes # (A) 1.8 k/uL (1.0-4.8); Lymphocytes % (A) 31 %; MCHC 34.6 g/dL (31.0-37.0); MCV 83.9 fL (80.0-100.0); Mean Platelet Volume 7.6; Monocytes # (A) 0.3 k/uL (0-1.0); Monocytes % (A) 5 %; Neutrophils # (A) 3.4 k/uL (1.3-7.7); Neutrophils % (A) 59 %; Platelet Count 148 k/uL (150-450); RBC 3.99 m/uL (3.80-5.40); RDW 16.1 % (11.5-15.5); WBC 5.8 k/uL (3.8-10.6)
[2020-07-29 14:41] LABS: ALT 49 U/L (4-34); AST 72 U/L (14-36); African American GFR (CKD) >90 (>60 ml/min/1.73 sqM); Albumin 4.1 g/dL (3.5-5.0); Alkaline Phosphatase 75 U/L (38-126); Anion Gap 10 mmol/L; Blood Urea Nitrogen 26 mg/dL (7-17); Calcium 9.3 mg/dL (8.4-10.2); Carbon Dioxide 25 mmol/L (22-30); Chloride 102 mmol/L (98-107); Glucose 94 mg/dL (74-99); Magnesium 1.6 mg/dL (1.6-2.3); Non-African American GFR(CKD) 85 (>60 ml/min/1.73 sqM); Sodium 137 mmol/L (137-145); Total Bilirubin 0.4 mg/dL (0.2-1.3); Total Protein 7.4 g/dL (6.3-8.2)
[2020-07-29 14:43] LABS: Prothrombin Time 10.5 sec (9.0-12.0)
--- NOTE | 2020-07-29 15:07 | XR ---
EXAMINATION TYPE: XR chest 2V DATE OF EXAM: 07/29/2020 COMPARISON: NONE HISTORY: Chest pain today. TECHNIQUE: Frontal and lateral views of the chest are obtained. FINDINGS: There is mild chronic parenchymal change without suspicious focal air space opacity, pleur al effusion, or pneumothorax seen. The cardiac silhouette size is enlarged. Multilevel spurring in t he spine. IMPRESSION: Cardiomegaly without acute pulmonary process.
[2020-07-29 18:00] VITALS: BP 115/72; PULSE 91; RESP 18
== END 2020-07-29 18:02 | disposition home or self-care (01) ==
LOC: EC 11:56
DX: R07.89 Other chest pain (principal); E78.5 Hyperlipidemia, unspecified; I10 Essential (primary) hypertension; K21.9 Gastro-esophageal reflux disease without esophagitis; Z79.1 Long term (current) use of non-steroidal anti-inflammatories (NSAID); Z79.82 Long term (current) use of aspirin; Z79.899 Other long term (current) drug therapy; Z86.718 Personal history of other venous thrombosis and embolism; Z88.0 Allergy status to penicillin
CPT/HCPCS: 36415; 71046; 80053; 83735; 84484; 85025; 85610; 85730; 93005; 99285

== ENCOUNTER → 2020-09-07 | Outpatient (CLI) | payer MEDICARE, OTHER ==
[~2020-09-07] MED LIST changes: -ACETAMINOPHEN TAB 500 MG TAB PO ONE; -GABAPENTIN 300 MG CAP PO ONE; -HYDROmorphone 0.5 MG/0.5 ML SYRINGE IVP PRN; -LIDOCAINE 1% (10MG/ML) FOR IV START INTRADERMA PRN; -ONDANSETRON 4 MG/2 ML VIAL IVP ONE; +REGADENOSON 0.4 MG/5 ML SYRINGE IV PRN; -TRANEXAMIC ACID 1,000 MG in SODIUM CHLORIDE 0.9% 100 ML IVPB ONE; -ceFAZolin 3 GM in SODIUM CHLORIDE 0.9% 100 ML IVPB ONE
--- NOTE | 2020-09-07 13:00 | NM ---
EXAMINATION TYPE: NM stress lexiscan cardiolite DATE OF EXAM: 09/07/2020 COMPARISON: Chest x-ray 07/29/2020 HISTORY: Chest pain TECHNIQUE: After the intravenous administration of 9.8 mCi Tc 99m Sestamibi - Cardiolite resting SPE CT images acquired 60 minutes post injection. The patient received 0.4mg Lexiscan, 25.2 mCi Tc 99m Sestamibi - Stress images obtained [address] injection FINDINGS: Review of stress and rest SPECT images demonstrates decreased uptake along the anterior wall left jj tricle towards the apex on stress and rest images seen more towards the anteroseptal region towards t he apex. There is some decreased uptake along the anteroseptal region more towards the base the hear t on stress as compared to rest images. Gated analysis shows normal wall motion with an estimated lef t ventricular ejection fraction of 63 %. 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 Referring clinician not ified via perfect serve at the time of interpretation.
--- NOTE | 2020-09-07 20:59 | EST ---
EXERCISE STRESS DATE OF SERVICE: September 07, 2020. INDICATION: Chest pain. AGE: 75 SEX: F HT: 5'3" WT: 262 lbs PROTOCOL: Lexiscan STAGE: N/A DURATION OF EXERCISE: N/A HEART RATE REST: 57 BLOOD PRESSURE REST: 134/60 MAXIMUM HEART RATE ACHIEVED: 91 MAXIMUM BLOOD PRESSURE: 141/71 85% MPHR: 124 100% MPHR: 146 METS: N/A STRESS DATA: Heart rate 57, pressure is 134/60 mmHg. Baseline EKG showed sinus mechanism. 0.4 mg of Lexiscan given over 15 seconds per protocol. Max heart rate was 69 beats per minute. Maximum pressure was 141/74 mmHg. Clinically, the patient did not have any symptoms and the EKG did not show any significant ST or T-wave abnormalities concerning for ischemia. CONCLUSION: 1. Nondiagnostic electrocardiogram stress testing in response to Lexiscan. 2. Please follow up on the Cardiolite portion on separate report from Radiology Department. MMODL / IJN: [id number] /
== END | disposition home or self-care (01) ==
LOC: RADNMMAIN 07:44
PROVIDERS: ATTEND Family Medicine
DX: R07.9 Chest pain, unspecified (principal)
CPT/HCPCS: 93017; 78452; A9500; J2785

== ENCOUNTER → 2020-10-13 | Day surgery (SDC) | payer MEDICARE, OTHER ==
[2020-10-11 17:31] VITALS: BMI 48.1
[~2020-10-13] MED LIST changes: +ALPRAZolam 0.25 MG TAB PO PRN; +ALPRAZolam 0.5 MG TAB PO PRN; +ASPIRIN 325 MG TAB PO ONE; +ATORVASTATIN 80 MG TAB PO ONE; +HEPARIN SODIUM 1,000 UN/ML (10ML VL) IV ONE; +HEPARIN SODIUM 1,000 UN/ML (10ML VL) ONE; +IOPAMIDOL-370 125ML BTL INJ ONE; +LEVOTHYROXINE 25 MCG TAB PO SCH; +LIDOCAINE 1% INJ 10MG/ML (20 ML MDV) ONE; +LIDOCAINE 1% INJ 10MG/ML (20 ML MDV) SQ ONE; +METOPROLOL TARTRATE 25 MG TAB PO SCH; +MIDAZOLAM 2 MG/2 ML VIAL IV ONE; +NITROGLYCERIN SL TABS 0.4 MG TAB SUBLINGUAL PRN; +NON FORMULARY DRUG (Aspirin Ec 81 MG Tablet.Dr) PO SCH; +NON FORMULARY DRUG (Losartan/Hydrochlorothiazide [Losartan-Hctz 100-25 Mg Tab] 1 EACH Tabl PO SCH; +NON FORMULARY DRUG (Omeprazole 20 MG Capsule.Dr) PO SCH; +NON FORMULARY DRUG (Rosuvastatin Calcium [Crestor] 10 MG Tablet) PO SCH; -REGADENOSON 0.4 MG/5 ML SYRINGE IV PRN; +RX INFO: IV CONTRAST WAS GIVEN 1 EACH MISC MISCELLANE PRN; +SODIUM CHLORIDE 0.9% 1,000 ML IV SCH; +SODIUM CHLORIDE 0.9% 1,000 ML in EMPTY BAG 1 BAG IV ONE; +VERAPAMIL 2.5 MG/ML 2 ML AMP ONE; +VERAPAMIL SYRINGE (5 MG/10 ML) INTRAARTER ONE; +fentaNYL (PF) 50 MCG/ML 2 ML AMP IV ONE; +fentaNYL (PF) 50 MCG/ML 2 ML AMP ONE
[2020-10-13 06:38] LABS: Anisocytosis Slight; Basophils % (A) 1 %; Eosinophils # (A) 0.2 k/uL (0-0.7); Eosinophils % (A) 3 %; HCT 34.3 % (34.0-46.0); HGB 11.5 gm/dL (11.4-16.0); Lymphocytes # (A) 1.8 k/uL (1.0-4.8); Lymphocytes % (A) 30 %; MCH 28.2 pg (25.0-35.0); MCHC 33.4 g/dL (31.0-37.0); MCV 84.3 fL (80.0-100.0); Mean Platelet Volume 7.7; Monocytes # (A) 0.3 k/uL (0-1.0); Monocytes % (A) 5 %; Neutrophils # (A) 3.7 k/uL (1.3-7.7); Neutrophils % (A) 60 %; Platelet Count 151 k/uL (150-450); RBC 4.07 m/uL (3.80-5.40); RDW 16.1 % (11.5-15.5); WBC 6.2 k/uL (3.8-10.6)
[2020-10-13 06:41] VITALS: RESP 16; TEMP 97.7
[2020-10-13 06:48] LABS: Calcium 9.2 mg/dL (8.4-10.2); Potassium 3.6 mmol/L (3.5-5.1)
--- NOTE | 2020-10-13 11:03 | CC ---
CARDIAC CATHETERIZATION REPORT Mrs. Rebolledo is a 75-year-old female with known history of hypertension and hyperlipidemia who recently had episode of chest discomfort. She subsequently underwent a myocardial perfusion imaging that revealed evidence of inducible ischemia involving the anterior wall. In view of that, recommendation was made regarding cardiac catheterization. The procedure as well as the risks and the complications were discussed with the patient who is in full understanding and agreement. PROCEDURE: Patient was brought to the construction laborer in a fasting semi-sedated state after receiving fentanyl and Benadryl and achieving moderate conscious sedated state. Using Xylocaine anesthesia and Seldinger technique, a 6-Swedish sheath was introduced in the right radial artery. Selective right and left coronary angiography performed using 5-Swedish 3.5 bend right and left Joshua catheter. Multiple views of the coronary artery including hemiaxial views were obtained. Following that, 5-Swedish tight pigtail catheter was introduced in the left ventricle and pressures were calculated. Following that, catheter and sheath were removed. Hemostasis was obtained with deployment of a TR band. There was no immediate complication. Patient was returned to her room in stable condition. Of note the patient received 5000 units of intravenous heparin as well as intra- arterial verapamil. FINDINGS: LEFT MAIN: This is a large-sized vessel trifurcating in left circumflex, left anterior descending artery and ramus intermedius. Left main coronary artery has no evidence of high-grade stenosis. LEFT ANTERIOR DESCENDING ARTERY: This is a large-sized vessel reaching to the apex giving rise to a small diagonal branch. The left anterior descending artery as well as branches have no evidence of obstructive coronary artery disease. There was mild myocardial bridging at the apical segment of the LAD. LEFT CIRCUMFLEX: This is a nondominant vessel giving rise to a small obtuse marginal branch. The left circumflex and branches have no evidence of obstructive coronary artery disease. RAMUS INTERMEDIUS: This is a large-sized vessel, has multiple branches. The ramus intermedius as well as branches have no evidence of obstructive coronary artery disease. RIGHT CORONARY ARTERY: This is a tortuous vessel, dominant small to moderate in caliber bifurcating distally PDA and posterolateral segment and branches. The right coronary artery as well as branches have no evidence of obstructive coronary artery disease. LEFT VENTRICULOGRAM: Left ventriculogram was not performed. HEMODYNAMICS: There was no gradient across the aortic valve. The left ventricular end-diastolic pressure was 12-14 mmHg. CONCLUSION: 1. 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 2. Normal left ventricular end-diastolic pressure. RECOMMENDATION: In view of finding anatomy, I recommend to continue medical therapy with aggressive coronary risk modifications that have been initiated. Those findings and recommendations were discussed with the patient and her family and they are in full understanding and agreement. Duration of sedation 14 minutes. MMODL / IJN: [id number] /
--- NOTE | 2020-10-13 11:09 | LTR ---
October 13, 2020 Re: Ayde Rebolledo Dear Dr. Jeronimo: I had the opportunity to perform cardiac catheterization on Mrs. Rebolledo at [facility] on the 13 of October and a full copy of the procedure note will be forwarded to you. In brief he was found to have no evidence of significant obstructive coronary artery disease and based on those findings, I recommend to continue medical therapy with aggressive coronary risk modifications that have been initiated. Thank you again for allowing me the opportunity to participate in her care. Please feel free to call for any questions. Sincerely, MD LISSET ReichL / MAEGANN: [phone] /
[2020-10-13 11:58] VITALS: PULSE 54
[2020-10-13 12:00] VITALS: BP 95/50
== END | disposition home or self-care (01) ==
LOC: CATHCVL 05:44
PROVIDERS: ATTEND Internal Medicine Interventional Cardiology
DX: I77.1 Stricture of artery (principal); R07.9 Chest pain, unspecified; I10 Essential (primary) hypertension; E78.2 Mixed hyperlipidemia; R09.89 Other specified symptoms and signs involving the circulatory and respiratory systems; Z20.822 Contact with and (suspected) exposure to COVID-19; Z79.82 Long term (current) use of aspirin; Z79.890 Hormone replacement therapy; Z79.899 Other long term (current) drug therapy; E78.00 Pure hypercholesterolemia, unspecified; Z87.891 Personal history of nicotine dependence
CPT/HCPCS: 93458; 80048; 85025; 87635; C1894; C1769; J2250; J2001; J3010; J1644; Q9967

== ENCOUNTER → 2020-11-29 | Outpatient (CLI) | payer MEDICARE, OTHER ==
[2020-11-29 16:58] LABS: HCT 36.4 % (37.2-46.3); MCH 27.1 pg (27.0-32.0); MCHC 30.2 g/dL (32.0-37.0); MCV 89.7 fL (80.0-97.0); Mean Platelet Volume 10.8 fL (9.5-12.2); Platelet Count 146 X 10*3/uL (140-440); RBC 4.06 X 10*6/uL (4.10-5.20); RDW 16.7 % (11.5-14.5); WBC 5.28 X 10*3/uL (4.50-10.00)
[2020-11-29 20:57] LABS: African American GFR (CKD) 64.3 (60.0-200.0); Albumin/Globulin Ratio 1.43 (1.60-3.17); Anion Gap 10.7 mmol/L (4.00-12.00); Calcium 8.9 mg/dL (8.7-10.3); Carbon Dioxide 28.3 mmol/L (21.6-31.8); Chol/HDL Ratio 4.88; Globulin 2.8 g/dL (1.6-3.3); LDL Cholesterol,Calculated 43.8 mg/dL (0.0-131.0); Non-African American GFR(CKD) 55.5 (60.0-200.0); Potassium 4.5 mmol/L (3.5-5.5); Total Bilirubin 0.5 mg/dL (0.3-1.2); Total Protein 6.8 g/dL (6.2-8.2); VLDL Calculation 53.2 mg/dL (5.00-40.00)
== END | disposition home or self-care (01) ==
LOC: LABWHC1 09:28
PROVIDERS: ATTEND Family Medicine
DX: E78.2 Mixed hyperlipidemia (principal); R53.83 Other fatigue; R11.2 Nausea with vomiting, unspecified
CPT/HCPCS: 36415; 80053; 80061; 84443; 85027; 87045; 87046; 87329

== ENCOUNTER → 2020-12-12 | Outpatient (CLI) | payer MEDICARE, OTHER ==
[2020-12-12 18:40] LABS: HCT 35.4 % (37.2-46.3); MCH 28.3 pg (27.0-32.0); MCHC 31.1 g/dL (32.0-37.0); Mean Platelet Volume 11.1 fL (9.5-12.2); Platelet Count 160 X 10*3/uL (140-440); RBC 3.89 X 10*6/uL (4.10-5.20); RDW 17.1 % (11.5-14.5); WBC 6.11 X 10*3/uL (4.50-10.00)
[2020-12-12 18:57] LABS: African American GFR (CKD) 51.6 (60.0-200.0); Albumin/Globulin Ratio 1.43 (1.60-3.17); Anion Gap 9.1 mmol/L (4.00-12.00); BUN/Creat Ratio 23.33 Ratio (12.00-20.00); Calcium 9.1 mg/dL (8.7-10.3); Carbon Dioxide 27.9 mmol/L (21.6-31.8); Globulin 2.8 g/dL (1.6-3.3); Non-African American GFR(CKD) 44.5 (60.0-200.0); Potassium 4.8 mmol/L (3.5-5.5); Total Bilirubin 0.4 mg/dL (0.3-1.2); Total Protein 6.8 g/dL (6.2-8.2)
[2020-12-12 19:27] LABS: Hepatitis A Antibody IgM Non-Reactive (Non-Reactive); Hepatitis B Core IgM Non-Reactive (Non-Reactive); Hepatitis B Surface Antigen Non-Reactive (Non-Reactive); Hepatitis C IgG Antibody Non-Reactive (Non-Reactive)
== END | disposition home or self-care (01) ==
LOC: LABWHC1 12:04
PROVIDERS: ATTEND Family Medicine
DX: R11.2 Nausea with vomiting, unspecified (principal)
CPT/HCPCS: 36415; 80053; 80074; 85027

== ENCOUNTER → 2020-12-19 | Outpatient (CLI) | payer MEDICARE, OTHER ==
--- NOTE | 2020-12-20 07:33 | CT ---
EXAMINATION TYPE: CT abdomen pelvis wo con DATE OF EXAM: 12/19/2020 HISTORY: diarrhea x8 weeks CT DLP: 1474.1 mGycm. Automated Exposure Control for Dose Reduction was Utilized. TECHNIQUE: CT scan of the abdomen and pelvis is performed without oral or IV contrast. COMPARISON: CT abdomen and pelvis May 14, 2019 FINDINGS: Within the limitations of a non-contrast study, the following observations are made. LUNG BASES: No significant abnormality is appreciated. LIVER/GB: Cholecystectomy clips redemonstrated. Visualized liver is heterogeneously hypodense relativ e to spleen consistent with mild diffuse fatty infiltration similar to prior. Stable prominent AP yoselin meter to liver. PANCREAS: No significant abnormality is seen. SPLEEN: Stable splenomegaly at 15.8 cm long axis axial image 22. ADRENALS: Stable tiny left adrenal nodule series 3 image 29 presumed benign adenoma based on size. Ho unsfield units less than 10 also consistent with benign lipid rich adenoma. KIDNEYS: No significant abnormality is seen. BOWEL: Postsurgical changes along the stomach redemonstrated. Oral contrast reaches the rectum. No servin spicious small or large bowel dilatation. GENITAL ORGANS: Uterus surgically absent or markedly atrophic. Remnant small size ovaries noted. LYMPH NODES: No greater than 1cm abdominal or pelvic lymph nodes are appreciated. OSSEOUS STRUCTURES: Multilevel spurring in the spine. Exaggerated kyphosis. Moderate to severe disc s pace narrowing lumbosacral junction all redemonstrated. Moderate to borderline severe axial joint spa ce loss both hips with moderate spurring at OTHER: Several irregular Ventral wall hernias along vertical anterior midline incision containing fat are redemonstrated greatest just above the umbilicus. IMPRESSION: No new or acute findings to account for patient's symptoms of diarrhea.
== END | disposition home or self-care (01) ==
LOC: RADCTMAIN 14:45
PROVIDERS: ATTEND Family Medicine
DX: R19.7 Diarrhea, unspecified (principal)
CPT/HCPCS: 74176

== ENCOUNTER → 2021-11-14 | Outpatient (CLI) | payer MEDICARE ==
[2021-11-14 11:09] LABS: ALT 38 U/L (8-44); AST 37 U/L (13-35); African American GFR (CKD) 72.5 (60.0-200.0); Albumin 4.4 g/dL (3.8-4.9); Albumin/Globulin Ratio 1.33 (1.60-3.17); Alkaline Phosphatase 76 U/L (41-126); BUN/Creat Ratio 22.33 Ratio (12.00-20.00); Blood Urea Nitrogen 20.1 mg/dL (9.0-27.0); Carbon Dioxide 26.4 mmol/L (20.0-27.5); Chloride 105 mmol/L (96-109); Chol/HDL Ratio 4.74 Ratio; Globulin 3.3 g/dL (1.6-3.3); Glucose 127 mg/dL (70-110); LDL Cholesterol,Calculated 96.9 mg/dL (0.0-131.0); Non-African American GFR(CKD) 62.5 (60.0-200.0); Potassium 4.3 mmol/L (3.5-5.5); Sodium 144 mmol/L (135-145); Total Protein 7.7 g/dL (6.2-8.2)
== END | disposition home or self-care (01) ==
LOC: LABWHC1 07:39
PROVIDERS: ATTEND Internal Medicine Interventional Cardiology
DX: E78.2 Mixed hyperlipidemia (principal)
CPT/HCPCS: 36415; 80053; 80061

== ENCOUNTER → 2021-12-18 | Outpatient (CLI) | payer MEDICARE ==
[2021-12-18 15:18] LABS: ALT 32 U/L (8-44); AST 36 U/L (13-35); LDL Cholesterol,Calculated 76.3 mg/dL (0.0-131.0)
== END | disposition home or self-care (01) ==
LOC: LABWHC1 09:09
PROVIDERS: ATTEND Internal Medicine Interventional Cardiology
DX: E78.2 Mixed hyperlipidemia (principal)
CPT/HCPCS: 36415; 80061; 84450; 84460

== ENCOUNTER → 2022-08-08 | Outpatient (CLI) | payer MEDICARE ==
[2022-08-08 18:19] LABS: ALT 31 U/L (8-44); AST 33 U/L (13-35); African American GFR (CKD) 71.8 (60.0-200.0); Albumin 4.5 g/dL (3.8-4.9); Albumin/Globulin Ratio 1.38 (1.60-3.17); Alkaline Phosphatase 83 U/L (41-126); BUN/Creat Ratio 24.37 Ratio (12.00-20.00); Blood Urea Nitrogen 22.1 mg/dL (9.0-27.0); Carbon Dioxide 28.4 mmol/L (20.0-27.5); Chloride 102 mmol/L (96-109); Chol/HDL Ratio 3.72 Ratio; Globulin 3.3 g/dL (1.6-3.3); Glucose 98 mg/dL (70-110); LDL Cholesterol,Calculated 75.2 mg/dL (0.0-131.0); Potassium 4.2 mmol/L (3.5-5.5); Sodium 142 mmol/L (135-145); Total Protein 7.8 g/dL (6.2-8.2)
== END | disposition home or self-care (01) ==
LOC: LABWHC1 12:59
PROVIDERS: ATTEND Internal Medicine Interventional Cardiology
DX: E78.2 Mixed hyperlipidemia (principal)
CPT/HCPCS: 36415; 80053; 80061

== ENCOUNTER → 2023-04-20 | Outpatient (CLI) | payer MEDICARE ==
[2023-04-20 23:03] LABS: ALT 37 U/L (8-44); AST 32 U/L (13-35); Chol/HDL Ratio 4.28 Ratio; LDL Cholesterol,Calculated 105.5 mg/dL (0.0-131.0)
== END | disposition home or self-care (01) ==
LOC: LABWHC1 11:14
PROVIDERS: ATTEND Internal Medicine Interventional Cardiology
DX: E78.2 Mixed hyperlipidemia (principal)
CPT/HCPCS: 36415; 80061; 84450; 84460

== ENCOUNTER 2023-08-15 21:47 | Emergency (ER) | payer MEDICARE ==
[2023-08-15 22:12] VITALS: RESP 18; TEMP 98.2
[2023-08-15 22:42] LABS: Basophils % (A) 1 %; Eosinophils # (A) 0.2 k/uL (0-0.7); Eosinophils % (A) 3 %; HCT 41.4 % (34.0-46.0); HGB 13.5 gm/dL (11.4-16.0); Lymphocytes # (A) 2.9 k/uL (1.0-4.8); Lymphocytes % (A) 45 %; MCH 31.5 pg (25.0-35.0); MCHC 32.7 g/dL (31.0-37.0); MCV 96.2 fL (80.0-100.0); Monocytes # (A) 0.4 k/uL (0-1.0); Monocytes % (A) 7 %; Neutrophils # (A) 2.7 k/uL (1.3-7.7); Neutrophils % (A) 42 %; Platelet Count 141 k/uL (150-450); RDW 13.9 % (11.5-15.5); WBC 6.4 k/uL (3.8-10.6)
[2023-08-15 22:57] LABS: ALT 34 U/L (4-34); AST 33 U/L (14-36); African American GFR (CKD) 90 (>60 ml/min/1.73 sqM); Albumin 4.2 g/dL (3.5-5.0); Alkaline Phosphatase 71 U/L (38-126); Anion Gap 8 mmol/L; Blood Urea Nitrogen 18 mg/dL (7-17); Calcium 9.3 mg/dL (8.4-10.2); Carbon Dioxide 26 mmol/L (22-30); Chloride 108 mmol/L (98-107); Glucose 116 mg/dL (74-99); Magnesium 1.8 mg/dL (1.6-2.3); Non-African American GFR(CKD) 78 (>60 ml/min/1.73 sqM); Potassium 3.5 mmol/L (3.5-5.1); Sodium 142 mmol/L (137-145); Total Bilirubin 0.3 mg/dL (0.2-1.3); Total Protein 7.3 g/dL (6.3-8.2)
[2023-08-15 22:59] LABS: INR 0.9 (<1.2); Partial Thromboplastin Time 24.3 sec (22.0-30.0); Prothrombin Time 10.4 sec (10.0-12.5)
--- NOTE | 2023-08-16 00:08 | XR ---
EXAM: XR Chest, 1 View CLINICAL HISTORY: ITS.REASON XR Reason: dysrhythmia TECHNIQUE: Frontal view of the chest. COMPARISON: 07/29/20 FINDINGS: Limitations: Underpenetration due to patient's large body habitus decreases the sensitivity of this exam. Lungs: Unremarkable. No consolidation. Pleural space: Unremarkable. Heart: Cardiomegaly. Mediastinum: Unremarkable. Normal mediastinal contour. Bones/joints: Osteopenia. Mild lower thoracic scoliosis convexed to the right. IMPRESSION: No acute findings or substantive change.
--- NOTE | 2023-08-16 00:10 | ED ---
Arrhythmia/Palpitations HPI - General Chief Complaint: Arrhythmia/Palpitations Stated Complaint: Heart Palpitations, Rapid Heart Rate Time Seen by Provider: 08/15/23 22:00 Source: patient Mode of arrival: ambulatory Limitations: no limitations - History of Present Illness Initial Comments: 77-year-old female presents emergency department reporting palpitations. States that it has been going on for the past few hours. She feels a racing sensation in her chest. Denies chest pain. No associated shortness of breath. Denies any irregular heart rhythms. She does have history of thyroid disorder. No recent medications. Denies alcohol or drug use. No history of coronary disease. Patient does not take any blood thinners. No fevers, chills or cough. Denies any associated nausea or vomiting. No other alleviating, precipitating or modifying factors - Related Data Home Medications Medication Instructions Recorded Confirmed Cholecalciferol [Vitamin D3 (25 50 mcg PO DAILY 10/15/19 10/13/20 Mcg = 1000 Iu)] Cyanocobalamin [Vitamin B-12 1,000 mcg SQ Q30D 10/15/19 10/11/20 Injection] Levothyroxine Sodium [Unithroid] 25 mcg PO AC-BRKFST 10/15/19 10/13/20 Losartan/Hydrochlorothiazide 1 tab PO DAILY 10/15/19 10/13/20 [Losartan-Hctz 100-25 mg Tab] Metoprolol Tartrate [Lopressor] 25 mg PO DAILY 10/15/19 10/13/20 Omeprazole [PriLOSEC] 20 mg PO DAILY 10/15/19 10/13/20 Aspirin EC [Ecotrin Low Dose] 81 mg PO DAILY 07/29/20 10/13/20 Diclofenac Sodium [Voltaren] 50 mg PO DAILY 07/29/20 10/13/20 Multivitamins, Thera [Multivitamin 1 tab PO DAILY 07/29/20 10/13/20 (formulary)] Rosuvastatin Calcium [Crestor] 10 mg PO DAILY 07/29/20 10/13/20 Doxycycline Hyclate [Vibramycin] 20 mg PO DAILY 10/11/20 10/13/20 Halobetasol Propionate [Ultravate] 1 applic TOPICAL DAILY PRN 10/11/20 10/13/20 metroNIDAZOLE [metroNIDAZOLE 0.75% 1 applic TOPICAL DAILY 10/11/20 10/13/20 Gel] Previous Rx's Medication Instructions Recorded Apixaban [Eliquis] 5 mg PO BID #60 tablet 08/16/23 Allergies Allergy/AdvReac Type Severity Reaction Status Date / Time bee pollen Allergy Swelling Verified 08/15/23 22:00 Penicillins Allergy Rash/Hives Verified 08/15/23 22:00 red dye Allergy Swelling Verified 08/15/23 22:00 Sulfa (Sulfonamide Allergy Unknown Verified 08/15/23 22:00 Antibiotics) Childhood Review of Systems ROS Statement: Those systems with pertinent positive or pertinent negative responses have been documented in the HPI. ROS Other: All systems not noted in ROS Statement are negative. Past Medical History Past Medical History: Chest Pain / Angina, GERD/Reflux, Hyperlipidemia, Hypertension, Musculoskeletal Disorder, Skin Disorder, Sleep Apnea/CPAP/BIPAP, Thyroid Disorder Additional Past Medical History / Comment(s): Shortness of breath on exertion, fatique for months; abn stress test. Gastric paresis. Rosacea, psoriasis. Degenerative arthritis. Uses CPAP. History of Any Multi-Drug Resistant Organisms: None Reported Past Surgical History: Cholecystectomy, Hysterectomy, Joint Replacement, Orthopedic Surgery Additional Past Surgical History / Comment(s): gastroplasty, tendon repair Lt foot, Lt Total Knee Past Anesthesia/Blood Transfusion Reactions: No Reported Reaction Past Psychological History: Anxiety Smoking Status: Former smoker Past Alcohol Use History: None Reported Past Drug Use History: None Reported - Past Family History Mother Family Medical History: Cancer Additional Family Medical History / Comment(s): thyroid cancer age 87, dementia Father Family Medical History: Myocardial Infarction ([place]) Additional Family Medical History / Comment(s): at 52 from massive [place] Brother(s) Family Medical History: Cancer Additional Family Medical History / Comment(s): from metastatic Melanoma General Exam Limitations: no limitations General appearance: alert, in no apparent distress Head exam: Present: atraumatic, normocephalic, normal inspection Eye exam: Present: normal appearance, PERRL, EOMI. Absent: scleral icterus, co njunctival injection, periorbital swelling ENT exam: Present: normal exam, mucous membranes moist Neck exam: Present: normal inspection. Absent: tenderness, meningismus, lymphadenopathy Respiratory exam: Present: normal lung sounds bilaterally. Absent: respiratory distress, wheezes, rales, rhonchi, stridor Cardiovascular Exam: Present: tachycardia, irregular rhythm, normal heart sounds. Absent: systolic murmur, diastolic murmur, rubs, gallop, clicks GI/Abdominal exam: Present: soft, normal bowel sounds. Absent: distended, tenderness, guarding, rebound, rigid Extremities exam: Present: normal inspection, full ROM, normal capillary refill. Absent: tenderness, pedal edema, joint swelling, calf tenderness Back exam: Present: normal inspection Neurological exam: Present: alert, oriented X3, CN II-XII intact Psychiatric exam: Present: normal affect, normal mood Skin exam: Present: warm, dry, intact, normal color. Absent: rash Course Vital Signs 08/15/23 08/15/23 08/16/23 21:58 22:00 00:00 Temperature 98.2 F Pulse Rate 147 H 92 79 Respiratory 18 18 18 Rate Blood Pressure 142/83 109/79 101/52 O2 Sat by Pulse 97 97 96 Oximetry 08/16/23 01:16 Temperature Pulse Rate 64 Respiratory 18 Rate Blood Pressure 106/65 O2 Sat by Pulse 97 Oximetry Medical Decision Making - Medical Decision Making Was pt. sent in by a medical professional or institution (, PA, [employer], urgent care, hospital, or custodial...) When possible be specific @ -No Did you speak to anyone other than the patient for history (EMS, parent, family, police, friend...)? What history was obtained from this source @ -No Did you review nursing and triage notes (agree or disagree)? Why? @ -I reviewed and agree with nursing and triage notes Were old charts reviewed (outside hosp., previous admission, EMS record, old EKG, old radiological studies, urgent care reports/EKG's, custodial records)? Report findings @ -No old charts were reviewed Differential Diagnosis (chest pain, altered mental status, abdominal pain women, abdominal pain men, vaginal bleeding, weakness, fever, dyspnea, syncope, headache, dizziness, GI bleed, back pain, seizure, CVA, palpatations, mental health, musculoskeletal)? @ -Differential Palpitations Ventricular arrhythmias, atrial arrhythmias, myocardial infarction, anemia, thyr otoxicosis, electrolyte imbalance, hypokalemia, pulmonary embolism, pulmonary disease, drugs, alcohol, anxiety, stress.... This is not meant to be an all-inclusive list. EKG interpreted by me (3pts min.). @ -Yes and demonstrates A-fib with a rate of 115. QRS 82. QTc of 362. No acute ST segment elevations or depressions X-rays interpreted by me (1pt min.). @ -Yes and demonstrates no acute process CT interpreted by me (1pt min.). @ -None done U/S interpreted by me (1pt. min.). @ -None done What testing was considered but not performed or refused? (CT, X-rays, U/S, labs)? Why? @ -None What meds were considered but not given or refused? Why? @ -Rate control medications were considered however patient does convert on her own Did you discuss the management of the patient with other professionals (professionals i.e. , PA, [employer], lab, RT, psych nurse, social media developer, ecommerce marketing specialist, teacher, chief development officer, social work case manager)? Give summary @ -Spoke with Dr. Waters who is cardiology on-call in regards to the patient's new onset A-fib with spontaneous conversion. He does recommend that I place the patient on Eliquis. Denies any changes to her metoprolol dose at this time as the patient is bradycardic in a normal sinus rhythm. Was smoking cessation discussed for >3mins.? @ -No Was critical care preformed (if so, how long)? @ -Yes, 35 minutes for management of new onset A-fib Were there social determinants of health that impacted care today? How? (Homelessness, low income, unemployed, alcoholism, drug addiction, transportation, low edu. Level, literacy, decrease access to med. care, half-way, rehab)? @ -No Was there de-escalation of care discussed even if they declined (Discuss DNR or withdrawal of care, Hospice)? DNR status @ -No What co-morbidities impacted this encounter? (DM, HTN, Smoking, COPD, CAD, Cancer, CVA, ARF, Chemo, Hep., AIDS, mental health diagnosis, sleep apnea, morbid obesity)? @ -None Was patient admitted / discharged? Hospital course, mention meds given and route, prescriptions, significant lab abnormalities, going to OR and other pertinent info. @ -Upon arrival patient was seen and evaluated in trauma 2. Thorough history and physical exam was performed. He was hooked to continuous pulse ox and cardiac monitoring. Twelve-lead EKG was obtained which demonstrates new onset A-fib with a rapid ventricular rate. IV was established. Laboratory studies are conducted. Patient does convert on her own and maintains a heart rate of 60s. Chest x-ray was performed. I did call and speak with Dr. Briseno. Spoke with him in regards to the patient's new onset A-fib. Does recommend anticoagulation with Eliquis as the patient does have a [id number] score of 5. The risk factors of being on a blood thinner are discussed with the patient. Informed that she needs to present to the emergency department for evaluation after any head injuries. Patient understood this. Metoprolol will remain the same as patient does have a low resting heart rate and a normal sinus rhythm. Instructed to call and make an appointment with the cardiology office and return for any new or worsening symptoms. Patient was agreeable to this plan she was discharged in stable condition Undiagnosed new problem with uncertain prognosis? @ -Yes Drug Therapy requiring intensive monitoring for toxicity (Heparin, Nitro, Insulin, Cardizem)? @ -No Were any procedures done? @ -No Diagnosis/symptom? @ -Acute palpitations, new onset A-fib Acute, or Chronic, or Acute on Chronic? @ -Acute Uncomplicated (without systemic symptoms) or Complicated (systemic symptoms)? @ -Complicated Side effects of treatment? @ -No Exacerbation, Progression, or Severe Exacerbation? @ -No Poses a threat to life or bodily function? How? (Chest pain, [place], [place], pneumonia, PE, COPD, DKA, ARF, appy, cholecystitis, CVA, Diverticulitis, Homicidal, Suicidal, threat to staff... and all critical care pts) @ -Yes patient did present with a rapidly elevated heart rate - Lab Data Result diagrams: 08/15/23 22:34 08/15/23 22:34 Lab Results 08/15/23 08/15/23 08/15/23 Range/Units 22:34 22:34 22:34 WBC (3.8-10.6) k/uL RBC (3.80-5.40) m/uL Hgb (11.4-16.0) gm/dL Hct (34.0-46.0) % MCV (80.0-100.0) fL MCH (25.0-35.0) pg MCHC (31.0-37.0) g/dL RDW (11.5-15.5) % Plt Count (150-450) k/uL MPV Neutrophils % % Lymphocytes % % Monocytes % % Eosinophils % % Basophils % % Neutrophils # (1.3-7.7) k/uL Lymphocytes # (1.0-4.8) k/uL Monocytes # (0-1.0) k/uL Eosinophils # (0-0.7) k/uL Basophils # (0-0.2) k/uL PT 10.4 (10.0-12.5) sec INR 0.9 (<1.2) APTT 24.3 (22.0-30.0) sec D-Dimer 0.49 (<0.60) mg/L FEU Sodium 142 (137-145) mmol/L Potassium 3.5 (3.5-5.1) mmol/L Chloride 108 H (98-107) mmol/L Carbon Dioxide 26 (22-30) mmol/L Anion Gap 8 mmol/L BUN 18 H (7-17) mg/dL Creatinine 0.75 (0.52-1.04) mg/dL Est GFR (CKD-EPI)AfAm 90 (>60 ml/min/1.73 sqM) Est GFR (CKD-EPI)NonAf 78 (>60 ml/min/1.73 sqM) Glucose 116 H (74-99) mg/dL Calcium 9.3 (8.4-10.2) mg/dL Magnesium 1.8 (1.6-2.3) mg/dL Total Bilirubin 0.3 (0.2-1.3) mg/dL AST 33 (14-36) U/L ALT 34 (4-34) U/L Alkaline Phosphatase 71 (38-126) U/L Troponin I <0.012 (0.000-0.034) ng/mL Total Protein 7.3 (6.3-8.2) g/dL Albumin 4.2 (3.5-5.0) g/dL TSH 3.410 (0.465-4.680) mIU/L 08/15/23 Range/Units 22:34 WBC 6.4 (3.8-10.6) k/uL RBC 4.30 (3.80-5.40) m/uL Hgb 13.5 (11.4-16.0) gm/dL Hct 41.4 (34.0-46.0) % MCV 96.2 (80.0-100.0) fL MCH 31.5 (25.0-35.0) pg MCHC 32.7 (31.0-37.0) g/dL RDW 13.9 (11.5-15.5) % Plt Count 141 L (150-450) k/uL MPV 8.0 Neutrophils % 42 % Lymphocytes % 45 % Monocytes % 7 % Eosinophils % 3 % Basophils % 1 % Neutrophils # 2.7 (1.3-7.7) k/uL Lymphocytes # 2.9 (1.0-4.8) k/uL Monocytes # 0.4 (0-1.0) k/uL Eosinophils # 0.2 (0-0.7) k/uL Basophils # 0.0 (0-0.2) k/uL PT (10.0-12.5) sec INR (<1.2) APTT (22.0-30.0) sec D-Dimer (<0.60) mg/L FEU Sodium (137-145) mmol/L Potassium (3.5-5.1) mmol/L Chloride (98-107) mmol/L Carbon Dioxide (22-30) mmol/L Anion Gap mmol/L BUN (7-17) mg/dL Creatinine (0.52-1.04) mg/dL Est GFR (CKD-EPI)AfAm (>60 ml/min/1.73 sqM) Est GFR (CKD-EPI)NonAf (>60 ml/min/1.73 sqM) Glucose (74-99) mg/dL Calcium (8.4-10.2) mg/dL Magnesium (1.6-2.3) mg/dL Total Bilirubin (0.2-1.3) mg/dL AST (14-36) U/L ALT (4-34) U/L Alkaline Phosphatase (38-126) U/L Troponin I (0.000-0.034) ng/mL Total Protein (6.3-8.2) g/dL Albumin (3.5-5.0) g/dL TSH (0.465-4.680) mIU/L Disposition Clinical Impression: New onset a-fib Disposition: HOME SELF-CARE Condition: Stable Instructions (If sedation given, give patient instructions): A-fib (Atrial Fibrillation) (ED) Additional Instructions: You have been diagnosed with A-fib. Please take the Eliquis twice a day. Call and make an appoint with Dr. Jean Baptiste. Continue taking your metoprolol as you have been prescribed. Return to the ED should you feel the palpitations again Prescriptions: Apixaban [Eliquis] 5 mg PO BID #60 tablet Is patient prescribed a controlled substance at d/c from ED?: No Referrals: Arthur Jeronimo MD [Primary Care Provider] - 1-2 days Bipni Jean Baptiste MD [STAFF PHYSICIAN] - 1-2 days Time of Disposition: 00:40
[2023-08-16] MEDS: APIXABAN 5 MG TAB PO STA (01:15)
[2023-08-16 01:20] VITALS: BP 106/65; PULSE 64
== END 2023-08-16 01:17 | disposition home or self-care (01) ==
LOC: EC 21:47
DX: I48.91 Unspecified atrial fibrillation (principal); Z88.0 Allergy status to penicillin; Z88.2 Allergy status to sulfonamides; Z91.030 Bee allergy status; Z91.041 Radiographic dye allergy status; Z87.891 Personal history of nicotine dependence
CPT/HCPCS: 36415; 71045; 80053; 83735; 84443; 84484; 85025; 85379; 85610; 85730; 93005; 99291

== ENCOUNTER 2023-10-09 15:15 | Emergency (ER) | payer MEDICARE ==
[2023-10-09 15:33] VITALS: TEMP 98
--- NOTE | 2023-10-09 15:49 | ED ---
General Adult HPI - General Chief complaint: Chest Pain Stated complaint: Afib-sent by PCP Time Seen by Provider: 10/09/23 15:30 Source: patient, RN notes reviewed, old records reviewed Mode of arrival: ambulatory Limitations: no limitations - History of Present Illness Initial comments: This is a 78-year-old female who presents to the emergency department stating that she just got off a cruise and her was diagnosed with COVID so she has now developed a cough and she can feel her heart racing. Patient states yesterday after she have to cruise she was in [place] and she could feel her heart rate racing at about 140 beats a minute and so she came home and decided to go to the emergency department after she visited an urgent care. Patient denies any cold. Patient has any chest pain. Patient states she just feels her heart racing and she states if she gets up and walks around she is a little short of breath. Patient denies any leg swelling or calf tenderness - Related Data Home Medications Medication Instructions Recorded Confirmed Cholecalciferol [Vitamin D3 (25 50 mcg PO DAILY 10/15/19 10/13/20 Mcg = 1000 Iu)] Cyanocobalamin [Vitamin B-12 1,000 mcg SQ Q30D 10/15/19 10/11/20 Injection] Levothyroxine Sodium [Unithroid] 25 mcg PO AC-BRKFST 10/15/19 10/13/20 Losartan/Hydrochlorothiazide 1 tab PO DAILY 10/15/19 10/13/20 [Losartan-Hctz 100-25 mg Tab] Metoprolol Tartrate [Lopressor] 25 mg PO DAILY 10/15/19 10/13/20 Omeprazole [PriLOSEC] 20 mg PO DAILY 10/15/19 10/13/20 Aspirin EC [Ecotrin Low Dose] 81 mg PO DAILY 07/29/20 10/13/20 Diclofenac Sodium [Voltaren] 50 mg PO DAILY 07/29/20 10/13/20 Multivitamins, Thera [Multivitamin 1 tab PO DAILY 07/29/20 10/13/20 (formulary)] Rosuvastatin Calcium [Crestor] 10 mg PO DAILY 07/29/20 10/13/20 Doxycycline Hyclate [Vibramycin] 20 mg PO DAILY 05/25/21 05/27/21 Halobetasol Propionate [Ultravate] 1 applic TOPICAL DAILY PRN 10/11/20 10/13/20 metroNIDAZOLE [metroNIDAZOLE 0.75% 1 applic TOPICAL DAILY 10/11/20 10/13/20 Gel] Previous Rx's Medication Instructions Recorded Apixaban [Eliquis] 5 mg PO BID #60 tablet 08/16/23 Allergies Allergy/AdvReac Type Severity Reaction Status Date / Time bee pollen Allergy Swelling Verified 10/09/23 15:25 Penicillins Allergy Rash/Hives Verified 10/09/23 15:25 red dye Allergy Swelling Verified 10/09/23 15:25 Sulfa (Sulfonamide Allergy Unknown Verified 10/09/23 15:25 Antibiotics) Childhood Review of Systems ROS Statement: Those systems with pertinent positive or pertinent negative responses have been documented in the HPI. ROS Other: All systems not noted in ROS Statement are negative. Past Medical History Past Medical History: Chest Pain / Angina, GERD/Reflux, Hyperlipidemia, Hypertension, Musculoskeletal Disorder, Skin Disorder, Sleep Apnea/CPAP/BIPAP, Thyroid Disorder Additional Past Medical History / Comment(s): Shortness of breath on exertion, fatique for months; abn stress test. Gastric paresis. Rosacea, psoriasis. Dege nerative arthritis. Uses CPAP. History of Any Multi-Drug Resistant Organisms: None Reported Past Surgical History: Cholecystectomy, Hysterectomy, Joint Replacement, Orthopedic Surgery Additional Past Surgical History / Comment(s): gastroplasty, tendon repair Lt foot, Lt Total Knee Past Anesthesia/Blood Transfusion Reactions: No Reported Reaction Past Psychological History: Anxiety Smoking Status: Former smoker Past Alcohol Use History: None Reported Past Drug Use History: None Reported - Past Family History Mother Family Medical History: Cancer Additional Family Medical History / Comment(s): thyroid cancer age 87, dementia Father Family Medical History: Myocardial Infarction ([place]) Additional Family Medical History / Comment(s): at 52 from massive [place] Brother(s) Family Medical History: Cancer Additional Family Medical History / Comment(s): from metastatic Melanoma General Exam - General Exam Comments Initial Comments: GENERAL: Patient is well-developed and well-nourished. Patient is nontoxic and well- hydrated and is in no acute distress. ENT: Neck is soft and supple. No significant lymphadenopathy is noted. Oropharynx is clear. Moist mucous membranes. Neck has full range of motion without eliciting any pain. EYES: The sclera were anicteric and conjunctiva were pink and moist. Extraocular movements were intact and pupils were equal round and reactive to light. Eyelids were unremarkable. PULMONARY: Unlabored respirations. Good breath sounds bilaterally. No audible rales rhonchi or wheezing was noted. CARDIOVASCULAR: Patient has irregular regular heart rate at about 140 beats a minute ABDOMEN: Soft and nontender with normal bowel sounds. SKIN: Skin is clear with no lesions or rashes and otherwise unremarkable. NEUROLOGIC: Patient is alert and oriented x3. Cranial nerves II through XII are grossly intact. Motor and sensory are also intact. Normal speech, volume and content. Symmetrical smile. MUSCULOSKELETAL: Normal extremities with adequate strength and full range of motion. No lower extremity swelling or edema. No calf tenderness. LYMPHATICS: No significant lymphadenopathy is noted PSYCHIATRIC: Normal psychiatric evaluation. Limitations: no limitations Course Vital Signs 10/09/23 15:19 Temperature 98 F Pulse Rate 115 H Respiratory 22 Rate Blood Pressure 122/74 O2 Sat by Pulse 95 Oximetry Medical Decision Making - Medical Decision Making EKG is interpreted by myself. EKG shows atrial A-fib at 91 bpm QRS is 98 QT interval 350 QTc is 398. Patient's EKG shows no ST segment elevation or depression Was pt. sent in by a medical professional or institution (, [facility], APPLICATIONS INSTRUCTOR, urgent care, hospital, or longterm...) When possible be specific @ -Patient's primary medical care doctor sent her into the hospital Did you speak to anyone other than the patient for history (EMS, parent, family, police, friend...)? What history was obtained from this source @ -No Did you review nursing and triage notes (agree or disagree)? Why? @ -I reviewed and agree with nursing and triage notes Were old charts reviewed (outside hosp., previous admission, EMS record, old EKG, old radiological studies, urgent care reports/EKG's, longterm records)? Report findings @ -No old charts were reviewed Differential Diagnosis (chest pain, altered mental status, abdominal pain women, abdominal pain men, vaginal bleeding, weakness, fever, dyspnea, syncope, headache, dizziness, GI bleed, back pain, seizure, CVA, palpatations, mental health, musculoskeletal)? @ -Differential Palpitations Ventricular arrhythmias, atrial arrhythmias, myocardial infarction, anemia, thyrotoxicosis, electrolyte imbalance, hypokalemia, pulmonary embolism, pulmonary disease, drugs, alcohol, anxiety, stress.... This is not meant to be an all-inclusive list. EKG interpreted by me (3pts min.). @ -As above X-rays interpreted by me (1pt min.). @ -Chest x-ray shows no acute abnormality CT interpreted by me (1pt min.). @ -None done U/S interpreted by me (1pt. min.). @ -None done What testing was considered but not performed or refused? (CT, X-rays, U/S, labs)? Why? @ -None What meds were considered but not given or refused? Why? @ -None Did you discuss the management of the patient with other professionals (professionals i.e. , PA, APPLICATIONS INSTRUCTOR, lab, RT, psych nurse, social research assistant, air boatswain, teacher, chief data officer, case operator)? Give summary @ -No Was smoking cessation discussed for >3mins.? @ -No Was critical care preformed (if so, how long)? @ -No Were there social determinants of health that impacted care today? How? (Homelessness, low income, unemployed, alcoholism, drug addiction, transportation, low edu. Level, literacy, decrease access to med. care, residential, rehab)? @ -No Was there de-escalation of care discussed even if they declined (Discuss DNR or withdrawal of care, Hospice)? DNR status @ -No What co-morbidities impacted this encounter? (DM, HTN, Smoking, COPD, CAD, Cancer, CVA, ARF, Chemo, Hep., AIDS, mental health diagnosis, sleep apnea, morbid obesity)? @ -None Was patient admitted / discharged? Hospital course, mention meds given and route, prescriptions, significant lab abnormalities, going to OR and other pertinent info. @ -While patient was in the hospital she was in atrial fibrillation with rapid ventricular response and she converted to a normal sinus rhythm on her own. Patient was diagnosed with influenza A as well as COVID. I went back in the room to reevaluate the patient she states she felt fantastic and wanted to go home. Patient was also mildly dehydrated Undiagnosed new problem with uncertain prognosis? @ -No Drug Therapy requiring intensive monitoring for toxicity (Heparin, Nitro, Insulin, Cardizem)? @ -No Were any procedures done? @ -No Diagnosis/symptom? @ -Influenza A Acute, or Chronic, or Acute on Chronic? @ -Acute Uncomplicated (without systemic symptoms) or Complicated (systemic symptoms)? @ -Complicated Side effects of treatment? @ -No Exacerbation, Progression, or Severe Exacerbation? @ -No Poses a threat to life or bodily function? How? (Chest pain, [place], [place], pneumonia, PE, COPD, DKA, ARF, appy, cholecystitis, CVA, Diverticulitis, Homicidal, Suicidal, threat to staff... and all critical care pts) @ -No Diagnosis/symptom? @ -COVID Acute, or Chronic, or Acute on Chronic? @ -Default Uncomplicated (without systemic symptoms) or Complicated (systemic symptoms)? @ -Acute complicated Side effects of treatment? @ -None Exacerbation, Progression, or Severe Exacerbation] @ -No Poses a threat to life or bodily function? @ -No Diagnosis/symptom? @ -A-fib with rapid ventricular response Acute, or Chronic, or Acute on Chronic? @ -Acute Uncomplicated (without systemic symptoms) or Complicated (systemic symptoms)? @ -Complicated Side effects of treatment? @ -None Exacerbation, Progression, or Severe Exacerbation] @ -No Poses a threat to life or bodily function? @ -No - Lab Data Result diagrams: 10/09/23 16:20 10/09/23 16:20 Lab Results 10/09/23 10/09/23 10/09/23 Range/Units 16:20 16:20 16:20 WBC 6.5 (3.8-10.6) k/uL RBC 4.71 (3.80-5.40) m/uL Hgb 14.7 (11.4-16.0) gm/dL Hct 44.1 (34.0-46.0) % MCV 93.7 (80.0-100.0) fL MCH 31.3 (25.0-35.0) pg MCHC 33.4 (31.0-37.0) g/dL RDW 13.7 (11.5-15.5) % Plt Count 145 L (150-450) k/uL MPV 7.9 Neutrophils % 56 % Lymphocytes % 35 % Monocytes % 5 % Eosinophils % 1 % Basophils % 1 % Neutrophils # 3.6 (1.3-7.7) k/uL Lymphocytes # 2.3 (1.0-4.8) k/uL Monocytes # 0.3 (0-1.0) k/uL Eosinophils # 0.1 (0-0.7) k/uL Basophils # 0.1 (0-0.2) k/uL PT 11.3 (10.0-12.5) sec INR 1.0 (<1.2) APTT 25.6 (22.0-30.0) sec D-Dimer 0.26 (<0.60) mg/L FEU Sodium 136 L (137-145) mmol/L Potassium 4.1 (3.5-5.1) mmol/L Chloride 107 (98-107) mmol/L Carbon Dioxide 18 L (22-30) mmol/L Anion Gap 11 mmol/L BUN 32 H (7-17) mg/dL Creatinine 0.90 (0.52-1.04) mg/dL Est GFR (CKD-EPI)AfAm 72 (>60 ml/min/1.73 sqM) Est GFR (CKD-EPI)NonAf 62 (>60 ml/min/1.73 sqM) Glucose 115 H (74-99) mg/dL Calcium 8.9 (8.4-10.2) mg/dL Magnesium 1.7 (1.6-2.3) mg/dL Total Bilirubin 0.8 (0.2-1.3) mg/dL AST 65 H (14-36) U/L ALT 44 H (4-34) U/L Alkaline Phosphatase 54 (38-126) U/L Troponin I (0.000-0.034) ng/mL Total Protein 7.8 (6.3-8.2) g/dL Albumin 4.2 (3.5-5.0) g/dL Influenza Type A (PCR) (Not Detectd) Influenza Type B (PCR) (Not Detectd) RSV (PCR) (Not Detectd) SARS-CoV-2 (PCR) (Not Detectd) 10/09/23 10/09/23 Range/Units 16:20 16:20 WBC (3.8-10.6) k/uL RBC (3.80-5.40) m/uL Hgb (11.4-16.0) gm/dL Hct (34.0-46.0) % MCV (80.0-100.0) fL MCH (25.0-35.0) pg MCHC (31.0-37.0) g/dL RDW (11.5-15.5) % Plt Count (150-450) k/uL MPV Neutrophils % % Lymphocytes % % Monocytes % % Eosinophils % % Basophils % % Neutrophils # (1.3-7.7) k/uL Lymphocytes # (1.0-4.8) k/uL Monocytes # (0-1.0) k/uL Eosinophils # (0-0.7) k/uL Basophils # (0-0.2) k/uL PT (10.0-12.5) sec INR (<1.2) APTT (22.0-30.0) sec D-Dimer (<0.60) mg/L FEU Sodium (137-145) mmol/L Potassium (3.5-5.1) mmol/L Chloride (98-107) mmol/L Carbon Dioxide (22-30) mmol/L Anion Gap mmol/L BUN (7-17) mg/dL Creatinine (0.52-1.04) mg/dL Est GFR (CKD-EPI)AfAm (>60 ml/min/1.73 sqM) Est GFR (CKD-EPI)NonAf (>60 ml/min/1.73 sqM) Glucose (74-99) mg/dL Calcium (8.4-10.2) mg/dL Magnesium (1.6-2.3) mg/dL Total Bilirubin (0.2-1.3) mg/dL AST (14-36) U/L ALT (4-34) U/L Alkaline Phosphatase (38-126) U/L Troponin I 0.018 (0.000-0.034) ng/mL Total Protein (6.3-8.2) g/dL Albumin (3.5-5.0) g/dL Influenza Type A (PCR) Detected A (Not Detectd) Influenza Type B (PCR) Not Detected (Not Detectd) RSV (PCR) Not Detected (Not Detectd) SARS-CoV-2 (PCR) Detected A (Not Detectd) Disposition Clinical Impression: COVID, Atrial fibrillation with rapid ventricular response, Influenza, Dehydration Disposition: HOME SELF-CARE Condition: Good Instructions (If sedation given, give patient instructions): COVID-19 (Coronavirus Disease 2019) (ED), Influenza (ED), A-fib (Atrial Fibrillation) (ED) Is patient prescribed a controlled substance at d/c from ED?: No Referrals: Arthur Jeronimo MD [Primary Care Provider] - 1-2 days Time of Disposition: 18:21
[2023-10-09] MEDS: SODIUM CHLORIDE 0.9% 500 ML 500 ML IV STA (16:22)
[2023-10-09 16:30] LABS: Basophils # (A) 0.1 k/uL (0-0.2); Basophils % (A) 1 %; Eosinophils # (A) 0.1 k/uL (0-0.7); Eosinophils % (A) 1 %; HCT 44.1 % (34.0-46.0); HGB 14.7 gm/dL (11.4-16.0); Lymphocytes # (A) 2.3 k/uL (1.0-4.8); Lymphocytes % (A) 35 %; MCH 31.3 pg (25.0-35.0); MCHC 33.4 g/dL (31.0-37.0); MCV 93.7 fL (80.0-100.0); Mean Platelet Volume 7.9; Monocytes # (A) 0.3 k/uL (0-1.0); Monocytes % (A) 5 %; Neutrophils # (A) 3.6 k/uL (1.3-7.7); Neutrophils % (A) 56 %; Platelet Count 145 k/uL (150-450); RBC 4.71 m/uL (3.80-5.40); RDW 13.7 % (11.5-15.5); WBC 6.5 k/uL (3.8-10.6)
[2023-10-09 16:42] LABS: Prothrombin Time 11.3 sec (10.0-12.5)
[2023-10-09 16:43] LABS: ALT 44 U/L (4-34); African American GFR (CKD) 72 (>60 ml/min/1.73 sqM); Anion Gap 11 mmol/L; Blood Urea Nitrogen 32 mg/dL (7-17); Calcium 8.9 mg/dL (8.4-10.2); Carbon Dioxide 18 mmol/L (22-30); Chloride 107 mmol/L (98-107); Glucose 115 mg/dL (74-99); Non-African American GFR(CKD) 62 (>60 ml/min/1.73 sqM); Partial Thromboplastin Time 25.6 sec (22.0-30.0); Sodium 136 mmol/L (137-145)
[2023-10-09 16:55] LABS: AST 65 U/L (14-36); Albumin 4.2 g/dL (3.5-5.0); Alkaline Phosphatase 54 U/L (38-126); Magnesium 1.7 mg/dL (1.6-2.3); Potassium 4.1 mmol/L (3.5-5.1); Total Bilirubin 0.8 mg/dL (0.2-1.3); Total Protein 7.8 g/dL (6.3-8.2)
--- NOTE | 2023-10-09 17:07 | XR ---
EXAMINATION TYPE: XR chest 2V DATE OF EXAM: 10/09/2023 COMPARISON: 08/07/2023 INDICATION: Dysrhythmia TECHNIQUE: Frontal and lateral views of the chest are obtained. FINDINGS: The heart size is mildly prominent. The pulmonary vasculature is normal. The lungs are clear. IMPRESSION: 1. Mild cardiomegaly
[2023-10-09 18:50] VITALS: BP 104/69; PULSE 80; RESP 18
== END 2023-10-09 18:45 | disposition home or self-care (01) ==
LOC: EC 15:15
DX: U07.1 COVID-19 (principal); I48.20 Chronic atrial fibrillation, unspecified; J10.1 Influenza due to other identified influenza virus with other respiratory manifestations; E86.0 Dehydration; Z88.0 Allergy status to penicillin; Z88.2 Allergy status to sulfonamides; Z91.030 Bee allergy status; Z91.041 Radiographic dye allergy status; Z87.891 Personal history of nicotine dependence
CPT/HCPCS: 36415; 71046; 80053; 83735; 84484; 85025; 85379; 85610; 85730; 87636; 93005; 96360; 96361; 99285

== ENCOUNTER 2024-01-19 12:50 | Observation (INO) | payer MEDICARE ==
--- NOTE | 2024-01-19 13:18 | ED ---
General Adult HPI - General Chief complaint: Chest Pain Stated complaint: heart issues Time Seen by Provider: 01/19/24 12:55 Source: patient Mode of arrival: ambulatory Limitations: no limitations - History of Present Illness Initial comments: Dictation was produced using [employer] dictation software. please excuse any grammatical, word or spelling errors. Chief Complaint: 78-year-old female presents to the emergency department with palpitations and chest pain History of Present Illness: Patient is a 78-year-old female presents emergency department palpitations or chest pain. She states that she started to feel palpitations today. Stated that she was at a dinner date last night. Denies any alcohol intake yesterday. States that she woke up this morning felt like her heart was racing. Patient has a history of A-fib she takes anticoagulation medications along with medications for rate control. Patient states that with the palpitations she started to feel little chest pressure that went down her left upper extremity. Patient does have a drop wirer. She states that her most recent catheter was 5 years ago. She was told that she has No coronary artery disease. The ROS documented in this emergency department record has been reviewed and confirmed by me. Those systems with pertinent positive or negative responses have been documented in the HPI. All other systems are other negative and/or noncontributory. - Related Data Home Medications Medication Instructions Recorded Confirmed Cholecalciferol [Vitamin D3 (25 50 mcg PO DAILY 10/15/19 10/13/20 Mcg = 1000 Iu)] Cyanocobalamin [Vitamin B-12 1,000 mcg SQ Q30D 10/15/19 10/11/20 Injection] Levothyroxine Sodium [Unithroid] 25 mcg PO AC-BRKFST 10/15/19 10/13/20 Losartan/Hydrochlorothiazide 1 tab PO DAILY 10/15/19 10/13/20 [Losartan-Hctz 100-25 mg Tab] Metoprolol Tartrate [Lopressor] 25 mg PO DAILY 10/15/19 10/13/20 Omeprazole [PriLOSEC] 20 mg PO DAILY 10/15/19 10/13/20 Aspirin EC [Ecotrin Low Dose] 81 mg PO DAILY 07/29/20 10/13/20 Diclofenac Sodium [Voltaren] 50 mg PO DAILY 07/29/20 10/13/20 Multivitamins, Thera [Multivitamin 1 tab PO DAILY 07/29/20 10/13/20 (formulary)] Rosuvastatin Calcium [Crestor] 10 mg PO DAILY 07/29/20 10/13/20 Doxycycline Hyclate [Vibramycin] 20 mg PO DAILY 10/11/20 10/13/20 Halobetasol Propionate [Ultravate] 1 applic TOPICAL DAILY PRN 10/11/20 10/13/20 metroNIDAZOLE [metroNIDAZOLE 0.75% 1 applic TOPICAL DAILY 10/11/20 10/13/20 Gel] Previous Rx's Medication Instructions Recorded Apixaban [Eliquis] 5 mg PO BID #60 tablet 08/16/23 Allergies Allergy/AdvReac Type Severity Reaction Status Date / Time bee pollen Allergy Swelling Verified 01/19/24 12:59 Penicillins Allergy Rash/Hives Verified 01/19/24 12:59 red dye Allergy Swelling Verified 01/19/24 12:59 Sulfa (Sulfonamide Allergy Unknown Verified 01/19/24 12:59 Antibiotics) Childhood Review of Systems ROS Statement: Those systems with pertinent positive or pertinent negative responses have been documented in the HPI. ROS Other: All systems not noted in ROS Statement are negative. Past Medical History Past Medical History: Chest Pain / Angina, GERD/Reflux, Hyperlipidemia, Hypertension, Musculoskeletal Disorder, Skin Disorder, Sleep Apnea/CPAP/BIPAP, Thyroid Disorder Additional Past Medical History / Comment(s): Shortness of breath on exertion, fatique for months; abn stress test. Gastric paresis. Rosacea, psoriasis. Degenerative arthritis. Uses CPAP. History of Any Multi-Drug Resistant Organisms: None Reported Past Surgical History: Cholecystectomy, Hysterectomy, Joint Replacement, Orthopedic Surgery Additional Past Surgical History / Comment(s): gastroplasty, tendon repair Lt f oot, Lt Total Knee Past Anesthesia/Blood Transfusion Reactions: No Reported Reaction Past Psychological History: Anxiety Smoking Status: Former smoker Past Alcohol Use History: None Reported Past Drug Use History: None Reported - Past Family History Mother Family Medical History: Cancer Additional Family Medical History / Comment(s): thyroid cancer age 87, dementia Father Family Medical History: Myocardial Infarction ([place]) Additional Family Medical History / Comment(s): at 52 from massive [place] Brother(s) Family Medical History: Cancer Additional Family Medical History / Comment(s): from metastatic Melanoma General Exam - General Exam Comments Initial Comments: PHYSICAL EXAM: General Impression: Alert and oriented x3, not in acute distress HEENT: Normocephalic atraumatic, extra-ocular movements intact, pupils equal and reactive to light bilaterally, mucous membranes moist. Cardiovascular: Heart regular rate and rhythm Chest: Able to complete full sentences, no retractions, no tachypnea Abdomen: abdomen soft, non-tender, non-distended, no organomegaly Musculoskeletal: Pulses present and equal in all extremities, no peripheral edema Motor: no focal deficits noted Neurological: CN II-XII grossly intact, no focal motor or sensory deficits noted Skin: Intact with no visualized rashes Psych: Normal affect and mood Limitations: no limitations Course Vital Signs 01/19/24 01/19/24 01/19/24 12:54 13:33 14:05 Temperature 97.7 F Pulse Rate 76 106 H 74 Respiratory 17 16 16 Rate Blood Pressure 139/91 118/80 144/87 O2 Sat by Pulse 96 97 100 Oximetry EKG Findings - EKG Comments: EKG Findings:: My EKG interpretation: Ventricular rate 107, a flutter, QRS 100, QTc 406. No QTC prolongation, no ST or T-wave changes noted. EKG compared to October 09, 2023 showing no changes. Overall, this EKG is unremarkable Medical Decision Making - Medical Decision Making Was pt. sent in by a medical professional or institution ([facility], C[employer] FARMWORKER, urgent care, hospital, or jail...) When possible be specific @ -No Did you speak to anyone other than the patient for history (EMS, parent, family, police, friend...)? What history was obtained from this source @ -No Did you review nursing and triage notes (agree or disagree)? Why? @ -I reviewed and agree with nursing and triage notes Were old charts reviewed (outside hosp., previous admission, EMS record, old EKG, old radiological studies, urgent care reports/EKG's, jail records)? Report findings @ -Had a cardiac catheterization performed in September 2020 that showed no obstructive coronary artery disease Differential Diagnosis (chest pain, altered mental status, abdominal pain women, abdominal pain men, vaginal bleeding, musculoskeletal, weakness, fever, dyspnea, syncope, headache, dizziness, GI bleed, back pain, seizure, CVA, palpatations, mental health)? @ -Differential Chest Pain: Stable Angina, Unstable Angina, STEMI, NSTEMI Aortic Dissection, Pneumothorax, Musculoskeletal, Esophageal Spasm GERD, Cholecystitis, Pancreatitis, Zoster, this is not meant to be an all-inclusive list. EKG interpreted by me (3pts min.). @ -As above X-rays interpreted by me (1pt min.). @ -There is no acute process on chest x-ray CT interpreted by me (1pt min.). @ -None done U/S interpreted by me (1pt. min.). @ -None done What testing was considered but not performed or refused? (CT, X-rays, U/S, labs)? Why? @ -None What meds were considered but not given or refused? Why? @ -None Was smoking cessation discussed for >3mins.? @ -No Were there social determinants of health that impacted care today? How? (Homelessness, low income, unemployed, alcoholism, drug addiction, transportation, low edu. Level, literacy, decrease access to med. care, fpc, rehab)? @ -No Was there de-escalation of care discussed even if they declined (Discuss DNR or withdrawal of care, Hospice)? DNR status @ -No What co-morbidities impacted this encounter? (DM, HTN, Smoking, COPD, CAD, Cancer, CVA, ARF, Chemo, Hep., AIDS, mental health diagnosis, sleep apnea, morbid obesity)? @ -A-fib Was patient admitted / discharged? Hospital course, mention meds given and route, prescriptions, significant lab abnormalities, going to OR and other pertinent info. @ -78-year-old female presents with palpitations along with chest pain. Her symptoms are atypical chest pain typical features. Patient in A-fib however she has a history of A-fib takes all the appropriate medications. Upon arrival shows slight tachycardia. Patient given 5 mg of IV metoprolol. At good rate control. Patient reevaluated bedside 2:06 PM. Given aspirin. Will be admitted observation for cardiology consultation. Did you discuss the management of the patient with other professionals (professionals i.e. , PA, COTTON FARMWORKER, lab, RT, psych nurse, administrator social welfare, platemaker, teacher, regulatory compliance officer, field nurse case manager)? Give summary @ -No Was critical care preformed (if so, how long)? @ -No Undiagnosed new problem with uncertain prognosis? @ -No Drug Therapy requiring intensive monitoring for toxicity (Heparin, Nitro, Insulin, Cardizem)? @ -No Were any procedures done? @ -No Diagnosis/symptom? Acute, or Chronic, or Acute on Chronic? Uncomplicated (without systemic symptoms) or Complicated (systemic symptoms)? @ -Chest pain Side effects of treatment? @ -No Exacerbation, Progression, or Severe Exacerbation? @ -No Poses a threat to life or bodily function? How? (Chest pain, [place], [place], pneumonia, PE, COPD, DKA, ARF, appy, cholecystitis, CVA, Diverticulitis, Homicidal, Suicidal, threat to staff... and all critical care pts) @ -yes - Lab Data Result diagrams: 01/19/24 13:21 01/19/24 13:21 Lab Results 01/19/24 01/19/24 01/19/24 Range/Units 13:21 13:21 13:21 WBC 7.5 (3.8-10.6) k/uL RBC 4.55 (3.80-5.40) m/uL Hgb 14.8 (11.4-16.0) gm/dL Hct 43.6 (34.0-46.0) % MCV 95.7 (80.0-100.0) fL MCH 32.5 (25.0-35.0) pg MCHC 34.0 (31.0-37.0) g/dL RDW 14.5 (11.5-15.5) % Plt Count 174 (150-450) k/uL MPV 8.0 Neutrophils % 51 % Lymphocytes % 39 % Monocytes % 5 % Eosinophils % 2 % Basophils % 1 % Neutrophils # 3.8 (1.3-7.7) k/uL Lymphocytes # 2.9 (1.0-4.8) k/uL Monocytes # 0.4 (0-1.0) k/uL Eosinophils # 0.2 (0-0.7) k/uL Basophils # 0.0 (0-0.2) k/uL Sodium 139 (137-145) mmol/L Potassium 3.9 (3.5-5.1) mmol/L Chloride 104 (98-107) mmol/L Carbon Dioxide 26 (22-30) mmol/L Anion Gap 9 mmol/L BUN 22 H (7-17) mg/dL Creatinine 0.80 (0.52-1.04) mg/dL Est GFR (CKD-EPI)AfAm 82 (>60 ml/min/1.73 sqM) Est GFR (CKD-EPI)NonAf 72 (>60 ml/min/1.73 sqM) Glucose 114 H (74-99) mg/dL Calcium 9.7 (8.4-10.2) mg/dL Magnesium 1.8 (1.6-2.3) mg/dL Total Bilirubin 0.5 (0.2-1.3) mg/dL AST 53 H (14-36) U/L ALT 41 H (4-34) U/L Alkaline Phosphatase 62 (38-126) U/L Troponin I <0.012 (0.000-0.034) ng/mL Total Protein 7.7 (6.3-8.2) g/dL Albumin 4.4 (3.5-5.0) g/dL Disposition Clinical Impression: Chest pain Disposition: ADMITTED IP TO THIS HOSP Condition: Fair Referrals: Arthur Jeronimo MD [Primary Care Provider] - 1-2 days Decision Time: 14:08
[2024-01-19] MEDS: METOPROLOL TARTRATE 5 MG/5 ML VIAL IVP STA ×2 (13:26→13:32)
[2024-01-19] MEDS: ASPIRIN 81 MG PO STA (13:26)
[2024-01-19 13:31] LABS: Basophils % (A) 1 %; Eosinophils # (A) 0.2 k/uL (0-0.7); Eosinophils % (A) 2 %; HCT 43.6 % (34.0-46.0); HGB 14.8 gm/dL (11.4-16.0); Lymphocytes # (A) 2.9 k/uL (1.0-4.8); Lymphocytes % (A) 39 %; MCH 32.5 pg (25.0-35.0); MCV 95.7 fL (80.0-100.0); Monocytes # (A) 0.4 k/uL (0-1.0); Monocytes % (A) 5 %; Neutrophils # (A) 3.8 k/uL (1.3-7.7); Neutrophils % (A) 51 %; Platelet Count 174 k/uL (150-450); RBC 4.55 m/uL (3.80-5.40); RDW 14.5 % (11.5-15.5); WBC 7.5 k/uL (3.8-10.6)
[2024-01-19 13:45] LABS: ALT 41 U/L (4-34); AST 53 U/L (14-36); African American GFR (CKD) 82 (>60 ml/min/1.73 sqM); Albumin 4.4 g/dL (3.5-5.0); Alkaline Phosphatase 62 U/L (38-126); Anion Gap 9 mmol/L; Blood Urea Nitrogen 22 mg/dL (7-17); Calcium 9.7 mg/dL (8.4-10.2); Carbon Dioxide 26 mmol/L (22-30); Chloride 104 mmol/L (98-107); Glucose 114 mg/dL (74-99); Magnesium 1.8 mg/dL (1.6-2.3); Non-African American GFR(CKD) 72 (>60 ml/min/1.73 sqM); Potassium 3.9 mmol/L (3.5-5.1); Sodium 139 mmol/L (137-145); Total Bilirubin 0.5 mg/dL (0.2-1.3); Total Protein 7.7 g/dL (6.3-8.2)
--- NOTE | 2024-01-19 13:52 | XR ---
EXAMINATION TYPE: XR chest 1V portable DATE OF EXAM: 01/19/2024 COMPARISON: 10/09/2023 INDICATION: Chest pain TECHNIQUE: Single frontal view of the chest is obtained. FINDINGS: The heart size is largest. The pulmonary vasculature is normal. The lungs are clear. IMPRESSION: 1. Cardiomegaly. 2. No acute pulmonary process radiographically apparent.
[2024-01-19] MEDS ORDERED: NITROGLYCERIN SL TABS 0.4 MG TAB SUBLINGUAL PRN (14:02)
[2024-01-19] MEDS: FAMOTIDINE 20 MG TAB PO SCH (20:35)
[2024-01-19] MEDS: APIXABAN 5 MG TAB PO SCH (20:35)
--- NOTE | 2024-01-19 22:20 | P.HPIM ---
History of Present Illness H&P Date: 01/19/24 Chief Complaint: Chest pain Patient is a 78-year-old female with a past medical history of atrial fibrillation, hypertension, hyperlipidemia, GERD, obstructive sleep apnea on CPAP, hypothyroidism, anxiety and prior history of smoking presents to ER with complaints of chest pain and palpitations. Patient states that she woke up this morning started having left retrosternal Chest pressureradiating to the neck and shoulder. She was also having achy feeling in the left upper extremity and tingling sensation. Exertional shortness of breath. No nausea vomiting or dizziness or lightheadedness. Patient states that she was at a dinner date last night. Denied any drinking alcohol yesterday. Otherwise patient is on anticoagulation with Eliquis at home.Otherwise patient patient denied any recent illnesses. She does have chronic diarrhea and prior history of gastric surgery for weight loss. No cough or sputum production. Denies any leg swelling. Her previous cardiac catheterization was about 5 years ago. EKG on admission showed atrial flutter with RVR. Chest x-ray showed cardiomegaly. No acute cardiopulmonary process. Laboratory data showed WBC 7.5 hemoglobin 14.8 and platelets 174 sodium 139 potassium 3.9 chloride 104 bicarb is 26 BUN 2020 creatinine 0.8 and blood sugar 114 AST 53 ALT 41 alk phos 62 troponin x 1 negative. TSH in July 2023 showed 3.41 Patient was given metoprolol IV push x 2 in the ER. Review of Systems Constitutional: Patient denies any fever or chills . No generalized weakness or weight loss. Abdomen: Patient denied nausea vomiting and diarrhea and abdominal pain. Cardiovascular: Patient complains of chest pressure associate with short of breath no palpitations. No leg swelling Respiratory: patient denied any cough or sputum production. No shortness of breath Neurologic: Patient denied any numbness or tingling. no headache. Musculoskeletal: Patient denies any complaints of joint swelling or deformity. Skin: Negative Psychiatric: Negative Endocrine: No heat or cold intolerance. No recent weight gain. Genitourinary: No dysuria or hematuria. All other 14 point ROS negative except the above Past Medical History Past Medical History: Chest Pain / Angina, GERD/Reflux, Hyperlipidemia, Hypertension, Musculoskeletal Disorder, Skin Disorder, Sleep Apnea/CPAP/BIPAP, Thyroid Disorder Additional Past Medical History / Comment(s): Shortness of breath on exertion, fatique for months; abn stress test. Gastric paresis. Rosacea, psoriasis. Degenerative arthritis. Uses CPAP. History of Any Multi-Drug Resistant Organisms: None Reported Past Surgical History: Cholecystectomy, Hysterectomy, Joint Replacement, Orthopedic Surgery Additional Past Surgical History / Comment(s): gastroplasty, tendon repair Lt foot, Lt Total Knee Past Anesthesia/Blood Transfusion Reactions: No Reported Reaction Past Psychological History: Anxiety Smoking Status: Former smoker Past Alcohol Use History: None Reported Past Drug Use History: None Reported - Past Family History Mother Family Medical History: Cancer Additional Family Medical History / Comment(s): thyroid cancer age 87, dementia Father Family Medical History: Myocardial Infarction ([place]) Additional Family Medical History / Comment(s): at 52 from massive [place] Brother(s) Family Medical History: Cancer Additional Family Medical History / Comment(s): from metastatic Melanoma Medications and Allergies Home Medications Medication Instructions Recorded Confirmed Type Levothyroxine Sodium [Unithroid] 25 mcg PO -BRKFST 10/15/19 01/19/24 History Diclofenac Sodium [Voltaren] 50 mg PO DAILY 07/29/20 01/19/24 History Multivitamins, Thera [Multivitamin 1 tab PO DAILY 07/29/20 01/19/24 History (formulary)] Rosuvastatin Calcium [Crestor] 10 mg PO DAILY 07/29/20 01/19/24 History Apixaban [Eliquis] 5 mg PO BID #60 tablet 08/16/23 01/19/24 Rx Albuterol Inhaler [Ventolin Hfa 1 - 2 puff INHALATION RT-QID PRN 01/19/2406/12 History Inhaler] Cholecalciferol [Vitamin D3 (25 50 mcg PO DAILY 01/19/24 01/19/24 History Mcg = 1000 Iu)] Cholestyramine (with Sugar) 4 gm PO AC-BRKFST 01/19/24 01/19/24 History [Cholestyramine Powder] Co Q-10(Unknown Dose) 1 tab PO DAILY 01/19/24 01/19/24 History Cyanocobalamin [Vitamin B-12 1 dose SQ DIRECTED 01/19/24 01/19/24 History Injection] Doxycycline Hyclate 20 mg PO DAILY 01/19/24 01/19/24 History Famotidine 40 mg PO HS 01/19/24 01/19/24 History Furosemide [Lasix] 20 mg PO DAILY 01/19/24 01/19/24 History L.acidoph,Paracasei, B.lactis 1 cap PO DAILY 01/19/24 01/19/24 History [Probiotic] Losartan-Hctz 50-12.5 mg [Hyzaar 1 tab PO DAILY 01/19/24 01/19/24 History 50-12.5] metroNIDAZOLE 0.75% CREAM 1 applic TOPICAL DAILY 01/19/24 01/19/24 History [Metrocream 0.75%] Allergies Allergy/AdvReac Type Severity Reaction Status Date / Time bee pollen Allergy Swelling Verified 01/19/24 14:43 Penicillins Allergy Rash/Hives Verified 01/19/24 14:43 red dye Allergy Swelling Verified 01/19/24 14:43 Sulfa (Sulfonamide Allergy Unknown Verified 01/19/24 14:43 Antibiotics) Childhood Physical Exam Vitals: Vital Signs Temp Pulse Resp BP Pulse Ox 01/19/24 14:18 86 01/19/24 13:33 106 H 16 118/80 97 01/19/24 12:54 97.7 F 76 17 139/91 96 Intake and Output 01/18/24 01/19/24 01/19/24 22:59 06:59 14:59 Other: Weight 113.398 kg PHYSICAL EXAMINATION: Patient is lying in the bed comfortably, no acute distress, awake alert and oriented. Morbidly obese. HEENT: Normocephalic. Neck is supple. Pupils reactive. Nostrils clear. Oral cavity is moist. Neck reveals no JVD, carotid bruits, or thyromegaly. CHEST EXAMINATION: Trachea is central. Symmetrical expansion. Bibasilar diminished sounds. No wheezing or rhonchi. Lung combs clear to auscultation and percussion. CARDIAC: Normal S1, S2 with no gallops. No murmurs. ABDOMEN: Soft. Bowel sounds normal. No organomegaly. No abdominal bruits. Extremities: reveal no edema. No clubbing or cyanosis Neurologically awake, alert, oriented x3 with well-coordinated movements. No focal deficits noted Skin: No rash or skin lesions. Psychiatric: Coperative. Nonsuicidal Musculoskeletal: No joint swelling or deformity. Normal range of motion. Results CBC & Chem 7: 01/19/24 13:21 01/19/24 13:21 Labs: Abnormal Lab Results - Last 24 Hours (Table) 01/19/24 Range/Units 13:21 BUN 22 H (7-17) mg/dL Glucose 114 H (74-99) mg/dL AST 53 H (14-36) U/L ALT 41 H (4-34) U/L Thrombosis Risk Factor Assmnt - DVT/VTE Prophylaxis DVT/VTE Prophylaxis: Pharmacologic Prophylaxis ordered Assessment and Plan Assessment: Atrial fibrillation with rapid ventricular response on admission Chest pain. Rule out ACS. Hypertension Hyperlipidemia Hypothyroidism Obstructive sleep apnea on CPAP Morbid obesity BMI 45.7 History of rosacea and TMJ disease Anxiety Prior history of smoking DVT prophylaxis patient is already on Eliquis Plan: Patient will be continued on telemonitoring. Heart rate improved with metoprolol IV push. Serial troponin x 3. Current with home medications including Eliquis and repeat BMP was ordered.. Cardiology was consulted for evaluation. Continue to follow closely. Time with Patient: Greater than 30
[2024-01-20] MEDS: CHOLESTYRAMINE (WITH SUGAR) 4 GM PACKET PO SCH (06:06)
[2024-01-20 07:36] LABS: African American GFR (CKD) 79 (>60 ml/min/1.73 sqM); Anion Gap 8 mmol/L; Blood Urea Nitrogen 23 mg/dL (7-17); Calcium 9.2 mg/dL (8.4-10.2); Carbon Dioxide 26 mmol/L (22-30); Chloride 104 mmol/L (98-107); Glucose 124 mg/dL (74-99); Non-African American GFR(CKD) 69 (>60 ml/min/1.73 sqM); Potassium 3.5 mmol/L (3.5-5.1); Sodium 138 mmol/L (137-145)
[2024-01-20 07:51] VITALS: RESP 15
[2024-01-20] MEDS: CHOLECALCIFEROL 25 MCG (1000 IU) TABLET PO SCH (08:30)
[2024-01-20] MEDS: LACTOBACILLUS ACIDOPHILUS/PECT 1 EACH CAPSULE PO SCH (08:32)
[2024-01-20] MEDS: MULTIVITAMINS, THERA 1 EACH TAB PO SCH (08:32)
[2024-01-20] MEDS: ATORVASTATIN 20 MG TAB PO SCH (08:33)
[2024-01-20] MEDS: LOSARTAN-HCTZ 50-12.5 MG 1 EACH TAB PO SCH (08:33)
[2024-01-20] MEDS: FUROSEMIDE 20 MG TAB PO SCH (08:33)
[2024-01-20] MEDS: ASPIRIN 325 MG TAB PO SCH (08:34)
[2024-01-20] MEDS: DOXYCYCLINE 50 MG CAP PO SCH (08:35)
[2024-01-20] MEDS: LEVOTHYROXINE 25 MCG TAB PO SCH ×2 (08:36)
[2024-01-20] MEDS: METOPROLOL SUCCINATE (ER) 25 MG TAB.ER.24H PO SCH (11:09)
--- NOTE | 2024-01-20 15:11 | P.CRDCN ---
History of Present Illness Consult date: 01/20/24 Consult reason: chest pain Chief complaint: Chest pain History of present illness: History of present illness: Patient is a pleasant 78-year-old female with significant past medical history of atrial fibrillation, hypertension, hyperlipidemia, GERD, obstructive sleep apnea on CPAP, hypothyroidism, anxiety who presented to the emergency department with A-fib episode. She does follow with Dr. Jean Baptiste in the office. She reports she was recently diagnosed with atrial fibrillation 3-4 months ago and has had 3 episodes of A-fib so far. She reports feeling left jaw achiness, left arm pain, chest pressure and shortness of breath when she is in A-fib. She did convert back to normal sinus rhythm and feels back to her baseline. She is taking metoprolol to tartrate once a day. She has been compliant with her CPAP. EKG had showed atrial flutter 107 bpm. She had a prior heart cath 09/2020 with no significant CAD. She is scheduled for an echocardiogram in the office in 3 days. She states she did try a stress test at the office however was claustrophobic and unable to complete the testing. Troponins negative, creatinine 0.83. REVIEW OF SYSTEMS: No fever or chills. No cough or expectoration. No diaphoresis. Patient denies headache, dizziness, blurred vision, double vision. Patient denies any stomach discomfort. No nausea, vomiting. No hematochezia. No hematemesis. Denies any black stools or blood in his stools. Denies dysuria or hematuria. No muscle weakness or numbness. No chest pain or pressure. PHYSICAL EXAMINATION: This is a 78-year-old female in no apparent distress at the time of my examination. HEENT: Head is atraumatic, normocephalic. Pupils are equal, round. Sclerae anicteric. Conjunctivae are clear. Mucous membranes of the mouth are moist. Neck is supple. There is no jugular venous distention. No carotid bruit is heard. CHEST EXAMINATION: Lungs are clear to auscultation. No chest wall tenderness is noted on palpation or with deep breathing. HEART EXAMINATION: Heart regular rate and rhythm. S1, S2 heard. No murmurs, gallops or rub. ABDOMEN: Soft, nontender. Bowel sounds are heard. EXTREMITIES: 2+ peripheral pulses with no evidence of peripheral edema and no calf tenderness noted. NEUROLOGIC EXAMINATION: Patient is awake, alert and oriented x3. IMPRESSION AND PLAN: Paroxysmal atrial fibrillation Hypertension Hyperlipidemia Obstructive sleep apnea on CPAP Hypothyroidism Anxiety Chest pain PLAN: She appears to be symptomatic with her atrial fibrillation. She was ta jose metoprolol tartrate once a day, will change this to Toprol 25 mg daily. Consider antiarrhythmics as an outpatient if she continues to have symptoms. She may also benefit from an ablation. Okay to discharge home from a cardiac standpoint and follow-up in office in 1-2 weeks. I am dictating on behalf of Dr. Braydon Mraio's history/physical and assessment/plan. Past Medical History Past Medical History: Chest Pain / Angina, GERD/Reflux, Hyperlipidemia, Hypertension, Musculoskeletal Disorder, Skin Disorder, Sleep Apnea/CPAP/BIPAP, Thyroid Disorder Additional Past Medical History / Comment(s): Shortness of breath on exertion, fatique for months; abn stress test. Gastric paresis. Rosacea, psoriasis. Degenerative arthritis. Uses CPAP. History of Any Multi-Drug Resistant Organisms: None Reported Past Surgical History: Cholecystectomy, Hysterectomy, Joint Replacement, Orthopedic Surgery Additional Past Surgical History / Comment(s): gastroplasty, tendon repair Lt foot, Lt Total Knee Past Anesthesia/Blood Transfusion Reactions: No Reported Reaction Past Psychological History: Anxiety Smoking Status: Former smoker Past Alcohol Use History: None Reported Past Drug Use History: None Reported - Past Family History Mother Family Medical History: Cancer Additional Family Medical History / Comment(s): thyroid cancer age 87, dementia Father Family Medical History: Myocardial Infarction ([place]) Additional Family Medical History / Comment(s): at 52 from massive [place] Brother(s) Family Medical History: Cancer Additional Family Medical History / Comment(s): from metastatic Melanoma Medications and Allergies Home Medications Medication Instructions Recorded Confirmed Type Levothyroxine Sodium [Unithroid] 25 mcg PO AC-BRKFST 10/15/19 01/19/24 History Diclofenac Sodium [Voltaren] 50 mg PO DAILY 07/29/20 01/19/24 History Multivitamins, Thera [Multivitamin 1 tab PO DAILY 07/29/20 01/19/24 History (formulary)] Rosuvastatin Calcium [Crestor] 10 mg PO DAILY 07/29/20 01/19/24 History Apixaban [Eliquis] 5 mg PO BID #60 tablet 08/16/23 01/19/24 Rx Albuterol Inhaler [Ventolin Hfa 1 - 2 puff INHALATION RT-QID PRN 01/19/24 01/19/24 History Inhaler] Cholecalciferol [Vitamin D3 (25 50 mcg PO DAILY 01/19/24 01/19/24 History Mcg = 1000 Iu)] Cholestyramine (with Sugar) 4 gm PO AC-BRKFST 01/19/24 01/19/24 History [Cholestyramine Powder] Co Q-10(Unknown Dose) 1 tab PO DAILY 01/19/24 01/19/24 History Cyanocobalamin [Vitamin B-12 1 dose SQ DIRECTED 01/19/24 01/19/24 History Injection] Doxycycline Hyclate 20 mg PO DAILY 01/19/24 01/19/24 History Famotidine 40 mg PO HS 01/19/24 01/19/24 History Furosemide [Lasix] 20 mg PO DAILY 01/19/24 01/19/24 History L.acidoph,Paracasei, B.lactis 1 cap PO DAILY 01/19/24 01/19/24 History [Probiotic] Losartan-Hctz 50-12.5 mg [Hyzaar 1 tab PO DAILY 01/19/24 01/19/24 History 50-12.5] metroNIDAZOLE 0.75% CREAM 1 applic TOPICAL DAILY 01/19/24 01/19/24 History [Metrocream 0.75%] Metoprolol Tartrate 25 mg PO QAM 01/20/24 01/20/24 History Allergies Allergy/AdvReac Type Severity Reaction Status Date / Time bee pollen Allergy Swelling Verified 01/19/24 14:43 Penicillins Allergy Rash/Hives Verified 01/19/24 14:43 red dye Allergy Swelling Verified 01/19/24 14:43 Sulfa (Sulfonamide Allergy Unknown Verified 01/19/24 14:43 Antibiotics) Childhood Physical Exam Vitals: Vital Signs Temp Pulse Pulse Resp BP BP BP 01/20/24 07:00 97.9 F 55 L 15 112/70 01/20/24 03:28 98.1 F 65 16 92/50 01/20/24 01:41 67 17 01/19/24 20:35 67 17 01/19/24 19:50 97.6 F 65 18 120/70 01/19/24 16:48 97.4 F L 67 17 109/67 01/19/24 16:00 67 16 113/69 01/19/24 15:04 61 16 128/114 01/19/24 14:18 86 01/19/24 13:33 106 H 16 118/80 01/19/24 12:54 97.7 F 76 17 139/91 Pulse Ox 01/20/24 07:00 95 01/20/24 03:28 96 01/20/24 01:41 01/19/24 20:35 01/19/24 19:50 96 01/19/24 16:48 97 01/19/24 16:00 95 01/19/24 15:04 97 01/19/24 14:18 01/19/24 13:33 97 01/19/24 12:54 96 Intake and Output 01/19/24 01/20/24 01/20/24 22:59 06:59 14:59 Intake Total 118 Balance 118 Intake: Oral 118 Other: # Voids 1 1 Weight 113.398 kg Results 01/19/24 13:21 01/20/24 06:25 Cardiac Enzymes 01/19/24 01/19/24 Range/Units 13:21 13:21 AST 53 H (14-36) U/L Troponin I <0.012 (0.000-0.034) ng/mL CBC 01/19/24 Range/Units 13:21 WBC 7.5 (3.8-10.6) k/uL RBC 4.55 (3.80-5.40) m/uL Hgb 14.8 (11.4-16.0) gm/dL Hct 43.6 (34.0-46.0) % Plt Count 174 (150-450) k/uL Comprehensive Metabolic Panel 01/19/24 01/20/24 Range/Units 13:21 06:25 Sodium 139 138 (137-145) mmol/L Potassium 3.9 3.5 (3.5-5.1) mmol/L Chloride 104 104 (98-107) mmol/L Carbon Dioxide 26 26 (22-30) mmol/L BUN 22 H 23 H (7-17) mg/dL Creatinine 0.80 0.83 (0.52-1.04) mg/dL Glucose 114 H 124 H (74-99) mg/dL Calcium 9.7 9.2 (8.4-10.2) mg/dL AST 53 H (14-36) U/L ALT 41 H (4-34) U/L Alkaline Phosphatase 62 (38-126) U/L Total Protein 7.7 (6.3-8.2) g/dL Albumin 4.4 (3.5-5.0) g/dL Current Medications Generic Name Dose Route Start Last Admin Trade Name Eliecer PRN Reason Stop Dose Admin Apixaban 5 mg 01/19/24 21:00 01/20/24 08:33 Apixaban 5 Mg Tab PO 5 mg BID COLETTE Administration Protocol Aspirin 325 mg 01/20/24 09:00 01/20/24 08:34 Aspirin 325 Mg Tab PO 325 mg DAILY COLETTE Administration Atorvastatin Calcium 20 mg 01/20/24 09:00 01/20/24 08:33 Atorvastatin 20 Mg Tab PO 20 mg DAILY COLETTE Administration Cholecalciferol 50 mcg 01/20/24 09:00 01/20/24 08:30 Cholecalciferol 25 Mcg (1000 Iu) Tablet PO 50 mcg DAILY COLETTE Administration Cholestyramine Resin 4 gm 01/21/24 06:00 Cholestyramine (With Sugar) 4 Gm Packet PO DAILY@0600 COLETTE Doxycycline Monohydrate 50 mg 01/20/24 09:00 01/20/24 08:35 Doxycycline 50 Mg Cap PO 50 mg DAILY COLETTE Administration Famotidine 40 mg 01/19/24 21:00 01/19/24 20:35 Famotidine 20 Mg Tab PO 40 mg HS COLETTE Administration Furosemide 20 mg 01/20/24 09:00 01/20/24 08:33 Furosemide 20 Mg Tab PO 20 mg DAILY COLETTE Administration HCTZ/Losartan Potassium 1 each 01/20/24 09:00 01/20/24 08:33 Losartan-Hctz 50-12.5 Mg 1 Each Tab PO 1 each DAILY COLETTE Administration Lactobacillus Acidophilus 1 each 01/20/24 09:00 01/20/24 08:32 Lactobacillus Acidophilus/Pect 1 Each Capsule PO 1 each DAILY COLETTE Administration Levothyroxine Sodium 25 mcg 01/20/24 06:14 01/20/24 08:36 Levothyroxine 25 Mcg Tab PO 25 mcg DAILY@0800 COLETTE Administration Multivitamins 1 each 01/20/24 09:00 01/20/24 08:32 Multivitamins, Thera 1 Each Tab PO 1 each DAILY COLETTE Administration Nitroglycerin 0.4 mg 01/19/24 14:02 Nitroglycerin Sl Tabs 0.4 Mg Tab SUBLINGUAL Q5M PRN Chest Pain Intake and Output 01/19/24 01/20/24 01/20/24 22:59 06:59 14:59 Intake Total 118 Balance 118 Intake: Oral 118 Other: # Voids 1 1 Weight 113.398 kg 01/19/24 13:21 01/20/24 06:25
[2024-01-20 15:32] VITALS: BP 118/68; PULSE 59; TEMP 98.1
[2024-01-21] MEDS ORDERED: CHOLESTYRAMINE (WITH SUGAR) 4 GM PACKET PO SCH (06:00)
== END 2024-01-20 16:39 | disposition home or self-care (01) ==
LOC: EC 12:50 → 6NMEDSUR 14:02 → EC 14:07 → 6NMEDSUR 16:11
PROVIDERS: ADMIT Hospitalist; ATTEND Hospitalist
DX: R07.89 Other chest pain (principal); I48.0 Paroxysmal atrial fibrillation; K21.9 Gastro-esophageal reflux disease without esophagitis; E78.5 Hyperlipidemia, unspecified; I10 Essential (primary) hypertension; F41.9 Anxiety disorder, unspecified; G47.33 Obstructive sleep apnea (adult) (pediatric); E03.9 Hypothyroidism, unspecified; K52.9 Noninfective gastroenteritis and colitis, unspecified; L71.9 Rosacea, unspecified; M26.609 Unspecified temporomandibular joint disorder, unspecified side; E66.01 Morbid (severe) obesity due to excess calories; Z68.42 Body mass index [BMI] 45.0-49.9, adult; Z87.891 Personal history of nicotine dependence; Z79.890 Hormone replacement therapy; Z79.899 Other long term (current) drug therapy; Z79.82 Long term (current) use of aspirin; Z79.01 Long term (current) use of anticoagulants; Z88.0 Allergy status to penicillin; Z88.2 Allergy status to sulfonamides; Z82.49 Family history of ischemic heart disease and other diseases of the circulatory system
CPT/HCPCS: 36415; 71045; 80048; 80053; 83735; 84484; 85025; 93005; 96374; 99285

== ENCOUNTER → 2024-05-26 | Outpatient (CLI) | payer MEDICARE ==
[2024-05-26 16:31] LABS: ALT 42 U/L (8-44); AST 40 U/L (13-35); Albumin 4.3 g/dL (3.8-4.9); Albumin/Globulin Ratio 1.34 Ratio (1.60-3.17); Alkaline Phosphatase 71 U/L (41-126); Blood Urea Nitrogen 23.4 mg/dL (9.0-27.0); Calcium 9.8 mg/dL (8.7-10.3); Carbon Dioxide 25.5 mmol/L (21.6-31.8); Chloride 104 mmol/L (96-109); Chol/HDL Ratio 4.41 Ratio; Globulin 3.2 g/dL (1.6-3.3); Glucose 131 mg/dL (70-110); LDL Cholesterol,Calculated 87.3 mg/dL (0.0-131.0); Potassium 4.2 mmol/L (3.5-5.5); Sodium 143 mmol/L (135-145); Total Bilirubin 0.3 mg/dL (0.3-1.2); Total Protein 7.5 g/dL (6.2-8.2)
== END | disposition home or self-care (01) ==
LOC: LABWHC1 08:51
PROVIDERS: ATTEND Internal Medicine Interventional Cardiology
DX: E78.2 Mixed hyperlipidemia (principal)
CPT/HCPCS: 36415; 80053; 80061

== ENCOUNTER → 2024-06-10 | Outpatient (CLI) | payer MEDICARE ==
[~2024-06-10] MED LIST changes: -ALPRAZolam 0.25 MG TAB PO PRN; -ALPRAZolam 0.5 MG TAB PO PRN; -ASPIRIN 325 MG TAB PO ONE; -ATORVASTATIN 80 MG TAB PO ONE; -HEPARIN SODIUM 1,000 UN/ML (10ML VL) IV ONE; -HEPARIN SODIUM 1,000 UN/ML (10ML VL) ONE; -IOPAMIDOL-370 125ML BTL INJ ONE; -LEVOTHYROXINE 25 MCG TAB PO SCH; -LIDOCAINE 1% INJ 10MG/ML (20 ML MDV) ONE; -LIDOCAINE 1% INJ 10MG/ML (20 ML MDV) SQ ONE; -METOPROLOL TARTRATE 25 MG TAB PO SCH; -MIDAZOLAM 2 MG/2 ML VIAL IV ONE; -NITROGLYCERIN SL TABS 0.4 MG TAB SUBLINGUAL PRN; -NON FORMULARY DRUG (Aspirin Ec 81 MG Tablet.Dr) PO SCH; -NON FORMULARY DRUG (Losartan/Hydrochlorothiazide [Losartan-Hctz 100-25 Mg Tab] 1 EACH Tabl PO SCH; -NON FORMULARY DRUG (Omeprazole 20 MG Capsule.Dr) PO SCH; -NON FORMULARY DRUG (Rosuvastatin Calcium [Crestor] 10 MG Tablet) PO SCH; +REGADENOSON 0.4 MG/5 ML SYRINGE IV PRN; -RX INFO: IV CONTRAST WAS GIVEN 1 EACH MISC MISCELLANE PRN; -SODIUM CHLORIDE 0.9% 1,000 ML IV SCH; -SODIUM CHLORIDE 0.9% 1,000 ML in EMPTY BAG 1 BAG IV ONE; -VERAPAMIL 2.5 MG/ML 2 ML AMP ONE; -VERAPAMIL SYRINGE (5 MG/10 ML) INTRAARTER ONE; -fentaNYL (PF) 50 MCG/ML 2 ML AMP IV ONE; -fentaNYL (PF) 50 MCG/ML 2 ML AMP ONE
--- NOTE | 2024-06-10 12:29 | NM ---
EXAMINATION TYPE: NM stress lexiscan cardiolite DATE OF EXAM: 06/10/2024 COMPARISON: Prior stress test September 07, 2020 CLINICAL INDICATION: Female, 78 years old with history of I48.0 PAROXYSMAL ATRIAL FIBRILLATION; histo ry of hypercholesteremia with chest pain TECHNIQUE: After the intravenous administration of 10.1 mCi Tc 99m Sestamibi - Cardiolite resting SP ECT images acquired 60 minutes post injection. The patient received 0.4mg Lexiscan, 25.9 mCi Tc 99m Sestamibi - Stress images obtained [address] injection FINDINGS: Review of stress and rest SPECT images demonstrates. Diminished radiotracer uptake involving the infe rior left ventricular wall at stress and rest images. The polar maps suggests some radiotracer uptake near the base on rest images not seen on stress images. 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 Gated analysis shows overall estimated left ventricular ejection fraction of 65 %. IMPRESSION: As above. Consider further investigation with direct catheter angiogram based on clinical and EKG correlation. [facility], , 06/10/2024 12:26 PM
--- NOTE | 2024-06-11 13:25 | CA ---
Lexiscan Nuclear Stress Test Report Name: Ayde Wang Exam Date: 06/10/2024 09:49 Exam Location: [facility] Ht (in): Wt (lb): BSA: Ordering Phys: Arthur Jeronimo MD Referring Phys: Bipin Jean Baptiste MD Technologist: ROBERTH,, Age: 78 Gender: F : 1945 Procedure CPT: Indications: I48.0 PAROXYSMAL ATRIAL FIBRILLATION ICD-10 Codes: Patient History: A-fib,chest pressure and neck pain. Medications: Meds past 24 hrs: Pretest Chest Pain: STRESS TEST Lexiscan Protocol Exercise Duration (min:sec): 02:[address] Depressions (mm): Angina Score: Robin Score: Resting HR (bpm): 60 Peak HR (bpm): 84 Resting BP (mmHg): 123 / 60 Peak BP (mmHg): 123 / 67 MPHR: 143 Target HR: 122 % MPHR: 59 METS: 1.0 Total Dose: Peak Dose: Atropine: Double Product: 69513 BP Response: Stress Termination: Infusion complete Stress Symptoms: No chest pain or symptoms Stress Summary: ECG ANALYSIS Resting ECG: Stress ECG: CONCLUSIONS At baseline EKG showed normal sinus rhythm, normal axis, no significant ST or T-wave abnormalities. Patient recieved IV infusion of Lexiscan 0.4mg and at peak infusion EKG showed no change from baseline. Conclusions: 1. Normal EKG response to Lexiscan infusion 2. Nuclear imaging to be reported separately. Dr. Braydon Mario DO (Electronically Signed) Final Date: 10 June 2024 15:22
== END | disposition home or self-care (01) ==
LOC: RADNMMAIN 07:56
PROVIDERS: ATTEND Family Medicine
DX: I48.0 Paroxysmal atrial fibrillation (principal); I20.89 Other forms of angina pectoris; E78.00 Pure hypercholesterolemia, unspecified; I50.30 Unspecified diastolic (congestive) heart failure; I11.0 Hypertensive heart disease with heart failure
CPT/HCPCS: 93017; 78452; A9500; J2785

== ENCOUNTER → 2024-11-24 | Outpatient (CLI) | payer MEDICARE ==
[2024-11-24 15:22] LABS: ALT 50 U/L (8-44); AST 55 U/L (13-35); Albumin 4.3 g/dL (3.8-4.9); Albumin/Globulin Ratio 1.39 Ratio (1.60-3.17); Alkaline Phosphatase 69 U/L (41-126); Anion Gap 13.40 mmol/L (4.00-12.00); BUN/Creat Ratio 18.33 Ratio (12.00-20.00); Blood Urea Nitrogen 16.5 mg/dL (9.0-27.0); Calcium 9.4 mg/dL (8.7-10.3); Carbon Dioxide 26.6 mmol/L (21.6-31.8); Chloride 103 mmol/L (96-109); Cholesterol 178.00 mg/dL (0.00-200.00); Globulin 3.1 g/dL (1.6-3.3); Glucose 122 mg/dL (70-110); HDL Cholesterol 43.00 mg/dL (40.00-60.00); LDL Cholesterol,Calculated 76.2 mg/dL (0.0-131.0); Potassium 4.8 mmol/L (3.5-5.5); Sodium 143 mmol/L (135-145); Total Protein 7.4 g/dL (6.2-8.2); Triglycerides 294.00 mg/dL (0.00-149.00); VLDL Calculation 58.80 mg/dL (5.00-40.00)
== END | disposition home or self-care (01) ==
LOC: LABWHC1 10:11
PROVIDERS: ATTEND Nurse Practitioner Adult Health
DX: I10 Essential (primary) hypertension (principal); E78.2 Mixed hyperlipidemia
CPT/HCPCS: 36415; 80053; 80061